=== PATIENT | male | born 1965 | race Caucasian/White ===

== ENCOUNTER 2018-06-01 10:32 | Day surgery (SDC) | payer BC ==
[2018-05-31 10:24] VITALS: BMI 29.1
[~2018-06-01 10:32] MED LIST: LACTATED RINGERS 1,000 ML IV SCH; LIDOCAINE 1% 20 ML VIAL (10MG/ML) FOR IV START INTRADERMA PRN
[2018-06-01 10:51] VITALS: RESP 16; TEMP 96.4
[2018-06-01] MEDS ORDERED: PROPOFOL 10 MG/ML 20 ML VIAL IV ONE (11:15)
--- NOTE | 2018-06-01 12:03 | P.PCN ---
Date of Procedure: 06/01/18 Procedure(s) Performed: Procedure: Colonoscopy and polypectomy. Preoperative diagnosis: Screening for neoplasia. Postoperative diagnosis: Rectal polyp snared but no large polyps or cancer. Preparation: HalfLytely prep. Sedation: Was provided by anesthesia. Brief clinical history: The patient is a 53-year-old male who is scheduled for this evaluation for screening for neoplasia age being his risk factor. There is history of "stomach" issues in his brother and sister but no family history of colon cancer. The patient has no abdominal complaints, bleeding or anemia. This would be his first colonoscopy. Procedure: With the patient on his left lateral decubitus position and after informed consent and adequate sedation, the perianal area was inspected and it did not show any fissures or fistulas. There were no masses felt on digital rectal examination. The Olympus CFH 190 L video colonoscope was then inserted in the rectum in the usual fashion and advanced to the cecum. The mucosa appeared healthy. There was a small rectal polyp within 1-2 cm from the anorectal junction which was snared and retrieved by suction, but there were no large polyps or cancer. No obvious diverticular disease or other pathology. I retroflexed the endoscope in the rectum before the endoscope was withdrawn. The patient tolerated the procedure well. Plan: The patient was reassured. Will await pathology results. I anticipate repeating this exam in 5 years.
[2018-06-01 12:31] VITALS: BP 121/76; PULSE 53
== END 2018-06-01 12:21 | disposition home or self-care (01) ==
LOC: ORWHC2ENDO 10:32
DX: Z12.11 Encounter for screening for malignant neoplasm of colon (principal); D12.8 Benign neoplasm of rectum; Z87.891 Personal history of nicotine dependence; Z79.82 Long term (current) use of aspirin; Z79.899 Other long term (current) drug therapy; F39 Unspecified mood [affective] disorder; I10 Essential (primary) hypertension; E78.5 Hyperlipidemia, unspecified
CPT/HCPCS: 88305; 45385; J2704

== ENCOUNTER 2019-02-23 14:49 | Inpatient (IN) | payer BC ==
[2019-02-23] MEDS ORDERED: NITROGLYCERIN SL TABS 0.4 MG TAB SUBLINGUAL STA (14:56)
[2019-02-23] MEDS ORDERED: ATORVASTATIN 80 MG TAB PO STA (14:56)
[2019-02-23] MEDS ORDERED: HEPARIN SODIUM,PORCINE 5,000 UNIT/ML 1 ML VIAL IV ONE (14:57)
[2019-02-23] MEDS ORDERED: IV FLUID CONTINUATION 950 ML IV ONE (15:05)
[2019-02-23] MEDS ORDERED: fentaNYL (PF) 50 MCG/ML 2 ML AMP ONE (15:08)
[2019-02-23] MEDS ORDERED: LIDOCAINE 1% INJ 10MG/ML (20 ML MDV) ONE (15:08)
[2019-02-23] MEDS ORDERED: VERAPAMIL 2.5 MG/ML 2 ML AMP ONE (15:08)
--- NOTE | 2019-02-23 15:17 | ED ---
General Adult HPI - General Chief complaint: Chest Pain Stated complaint: Stemi Time Seen by Provider: 02/23/19 14:55 Source: patient, RN notes reviewed, old records reviewed Mode of arrival: EMS Limitations: no limitations - History of Present Illness Initial comments: This a 54-year-old male who presents emergency Department with a past medical history significant for strong family history of heart disease also he has high blood pressure and high cholesterol. Patient states today he was cooking when all of a sudden he started having severe anterior chest pressure that radiated to his back per patient denies any difficulty breathing shortness of breath per patient denied any diaphoretic episodes. Patient states he has never had any pain like this was quite significant. Patient states the pain continues. EMS was unable to give him any nitroglycerin and did however give him an aspirin. Patient denies any recent workup for any heart problems. - Related Data Home Medications Medication Instructions Recorded Confirmed ALPRAZolam [Xanax] 0.5 mg PO BID PRN 05/31/18 06/01/18 Aspirin [Adult Low Dose Aspirin EC] 81 mg PO DAILY 05/31/18 06/01/18 Atenolol [Tenormin] 50 mg PO DAILY 05/31/18 06/01/18 Multivitamins, Thera [Multivitamin 1 tab PO DAILY 05/31/18 06/01/18 (formulary)] Ondansetron [Zofran] 4 mg PO Q8HR PRN 05/31/18 06/01/18 amLODIPine BESYLATE/BENAZEPRIL 1 cap PO DAILY 05/31/18 06/01/18 [Lotrel 10-20 MG] Allergies Allergy/AdvReac Type Severity Reaction Status Date / Time No Known Allergies Allergy Verified 02/23/19 14:58 Review of Systems ROS Statement: Those systems with pertinent positive or pertinent negative responses have been documented in the HPI. ROS Other: All systems not noted in ROS Statement are negative. 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 General Exam - General Exam Comments Initial Comments: GENERAL: Patient is well-developed and well-nourished. Patient is nontoxic and well- hydrated and is in mild distress. ENT: Neck is soft and supple. No significant lymphadenopathy is noted. Oropharynx is clear. Moist mucous membranes. Neck has full range of motion without eliciting any pain. EYES: The sclera were anicteric and conjunctiva were pink and moist. Extraocular movements were intact and pupils were equal round and reactive to light. Eyelids were unremarkable. PULMONARY: Unlabored respirations. Good breath sounds bilaterally. No audible rales rhonchi or wheezing was noted. CARDIOVASCULAR: There is a regular rate and rhythm without any murmurs gallops or rubs. ABDOMEN: Soft and nontender with normal bowel sounds. SKIN: Skin is clear with no lesions or rashes and otherwise unremarkable. NEUROLOGIC: Patient is alert and oriented x3. Cranial nerves II through XII are grossly intact. Motor and sensory are also intact. Normal speech, volume and content. Symmetrical smile. MUSCULOSKELETAL: Normal extremities with adequate strength and full range of motion. LYMPHATICS: No significant lymphadenopathy is noted PSYCHIATRIC: Normal psychiatric evaluation. Limitations: no limitations Course Vital Signs 02/23/19 14:55 Temperature 98.1 F Pulse Rate 60 Respiratory 16 Rate Blood Pressure 142/80 O2 Sat by Pulse 99 Oximetry Medical Decision Making - Medical Decision Making I saw the EKG that EMS sent and I merely called a STEMI overhead. I spoke with Dr. Burgos he agreed to take the patient as soon as the Sub Master was available which she estimated would be approximately 5 minutes. New. Patient received a heparin bolus in the emergency department nitroglycerin as well and Lipitor. I spoke with Dr. Corbett doctor she agreed to admit the patient admitted the patient wrote admitting orders. Critical Care Time Critical Care Time: Yes Total Critical Care Time: 35 Disposition Clinical Impression: ST elevation myocardial infarction (STEMI) Disposition: ADMITTED IP TO THIS HOSP Referrals: Navid Sunshine DO [Primary Care Provider] - 1-2 days Time of Disposition: 15:18
[2019-02-23] MEDS ORDERED: fentaNYL (PF) 50 MCG/ML 2 ML AMP IV ONE (15:19)
[2019-02-23] MEDS ORDERED: LIDOCAINE 1% INJ 10MG/ML (20 ML MDV) SQ ONE (15:20)
[2019-02-23 15:21] LABS: Basophils # (A) 0.1 k/uL (0-0.2); Basophils % (A) 1 %; Eosinophils # (A) 0.3 k/uL (0-0.7); Eosinophils % (A) 3 %; HCT 42.6 % (39.0-53.0); HGB 14.9 gm/dL (13.0-17.5); Lymphocytes # (A) 2.7 k/uL (1.0-4.8); Lymphocytes % (A) 28 %; MCH 31.5 pg (25.0-35.0); MCV 90.1 fL (80.0-100.0); Mean Platelet Volume 8.8; Monocytes # (A) 0.6 k/uL (0-1.0); Monocytes % (A) 7 %; Neutrophils # (A) 5.5 k/uL (1.3-7.7); Neutrophils % (A) 58 %; Platelet Count 289 k/uL (150-450); RBC 4.73 m/uL (4.30-5.90); RDW 12.4 % (11.5-15.5); WBC 9.4 k/uL (3.8-10.6)
[2019-02-23] MEDS ORDERED: VERAPAMIL SYRINGE (5 MG/10 ML) INTRAARTER ONE (15:22)
[2019-02-23] MEDS ORDERED: BIVALIRUDIN BOLUS 250 MG/50 ML IV ONE (15:27)
[2019-02-23] MEDS ORDERED: BIVALIRUDIN 250 MG in SODIUM CHLORIDE 0.9% 50 ML IV ONE (15:27)
[2019-02-23 15:28] LABS: ALT 17 U/L (4-49); AST 24 U/L (17-59); African American GFR (CKD) >90 (>60 ml/min/1.73 sqM); Albumin 4.5 g/dL (3.5-5.0); Alkaline Phosphatase 58 U/L (38-126); Anion Gap 10 mmol/L; Blood Urea Nitrogen 12 mg/dL (9-20); Calcium 9.6 mg/dL (8.4-10.2); Carbon Dioxide 27 mmol/L (22-30); Chloride 103 mmol/L (98-107); Glucose 125 mg/dL (74-99); Magnesium 1.8 mg/dL (1.6-2.3); Non-African American GFR(CKD) >90 (>60 ml/min/1.73 sqM); Potassium 3.9 mmol/L (3.5-5.1); Sodium 140 mmol/L (137-145); Total Bilirubin 0.4 mg/dL (0.2-1.3); Total Protein 7.4 g/dL (6.3-8.2)
[2019-02-23] MEDS ORDERED: TICAGRELOR 90 MG TAB ONE (15:29)
[2019-02-23] MEDS ORDERED: TICAGRELOR 90 MG TAB PO ONE (15:30)
[2019-02-23 15:31] LABS: INR 0.9 (<1.2); Partial Thromboplastin Time 36.8 sec (22.0-30.0); Prothrombin Time 9.5 sec (9.0-12.0)
[2019-02-23] MEDS ORDERED: SODIUM CHLORIDE 0.9% 500 ML 500 ML IV ONE (15:34)
[2019-02-23] MEDS ORDERED: IOPAMIDOL-370 125ML BTL INJ ONE (15:40)
[2019-02-23] MEDS ORDERED: NITROGLYCERIN 1000MCG/10ML SYRINGE INTRACORON ONE (15:44)
[2019-02-23] MEDS ORDERED: IOPAMIDOL-370 100ML BTL INJ ONE (16:03)
[2019-02-23] MEDS ORDERED: ZOLPIDEM 5 MG TAB PO PRN (16:12)
[2019-02-23] MEDS ORDERED: ATROPINE SULFATE 0.1 MG/ML 10ML SYRINGE IV PRN (16:12)
[2019-02-23] MEDS ORDERED: NITROGLYCERIN SL TABS 0.4 MG TAB SUBLINGUAL PRN (16:12)
[2019-02-23] MEDS ORDERED: RX INFO: IV CONTRAST WAS GIVEN 1 EACH MISC MISCELLANE PRN (16:12)
[2019-02-23] MEDS ORDERED: MAG HYDROX/AL HYDROX/SIMETH 30 ML CUP PO PRN (16:12)
[2019-02-23 16:19] LABS: Glucose,Whole Blood 97 mg/dL (75-99)
[2019-02-23] MEDS: SODIUM CHLORIDE 0.9% 1,000 ML IV SCH ×2 (18:06→22:08)
[2019-02-23] MEDS: METOPROLOL TARTRATE 25 MG TAB PO SCH (18:07)
--- NOTE | 2019-02-23 18:09 | P.HPIM ---
History of Present Illness this is a pleasant 54 yo M with past medical history of hypertension, osteoarthritis , who presents with one day of central and upper left chest pain of sever nature , non specific , non radiating associated with lightheadedness and some dyspnea , happened while he was sitting with for a meal . in the emergency room pt found to have inferior myocardial infarction with elevated ST segment in inferior lead with reciprocal changes in the lateral leads ,labs including CBC ,BMP Liver enz and INR were unremarkable, his troponin was negative initially with less than 0.012, pt underwent emergent cardiac cath with coronary angiogram and possible stent placement ( final report is still pending) pt was started on aspirin , brillinta, lipitor , lopressor, lisinopril and normal saline at 75 ml/hr pt denies smoking , occasional alcohol , no illicit drugs Review of Systems CONSTITUTIONAL: No fever, no malaise, no fatigue. HEENT: No recent visual problems or hearing problems. Denied any sore throat. CARDIOVASCULAR: No orthopnea, PND, no palpitations, no syncope. PULMONARY: No shortness of breath, no cough, no hemoptysis. GASTROINTESTINAL: No diarrhea, no nausea, no vomiting, no abdominal pain. Normoactive bowel sounds. NEUROLOGICAL: No headaches, no weakness, no numbness. HEMATOLOGICAL: Denies any bleeding or petechiae. GENITOURINARY: Denies any burning micturition, frequency, or urgency. MUSCULOSKELETAL/RHEUMATOLOGICAL: Denies any joint pain, swelling, or any muscle pain. ENDOCRINE: Denies any polyuria or polydipsia. Past Medical History Past Medical History: Chest Pain / Angina, Hypertension, Osteoarthritis (OA) Additional Past Medical History / Comment(s): 2 stents to RCA 02/23/19 History of Any Multi-Drug Resistant Organisms: None Reported Past Surgical History: Heart Catheterization, Orthopedic Surgery Additional Past Surgical History / Comment(s): RIGHT SHOULDER SURGERY, LEFT KNEE ARTHROSCOPY, TUMOR ABOVE LEFT EYE (INFANT), MESENTARY? (4 YRS OLD)., WISDOM TEETH Past Anesthesia/Blood Transfusion Reactions: No Reported Reaction Past Psychological History: Anxiety, Depression Smoking Status: Former smoker Past Alcohol Use History: None Reported Past Drug Use History: None Reported - Past Family History Mother Family Medical History: No Reported History Sister(s) Additional Family Medical History / Comment(s): BOWEL SURGERY - UNSURE CAUSE. Medications and Allergies Home Medications Medication Instructions Recorded Confirmed Type Aspirin [Adult Low Dose Aspirin EC] 81 mg PO DAILY 05/31/18 02/23/19 History Atenolol [Tenormin] 50 mg PO DAILY 05/31/18 02/23/19 History Multivitamins, Thera [Multivitamin 1 tab PO DAILY 05/31/18 02/23/19 History (formulary)] amLODIPine BESYLATE/BENAZEPRIL 1 cap PO DAILY 05/31/18 02/23/19 History [Lotrel 10-20 MG] HYDROcodone/APAP 10-325MG [Anchor 1 tab PO Q8H PRN 02/23/19 02/23/19 History 10-325] [place]-3 Fatty Acids [[place]-3] 1,000 mg PO DAILY 02/23/19 02/23/19 History Pravastatin Sodium [Pravachol] 20 mg PO HS 02/23/19 02/23/19 History Vitamin B Complex 1 cap PO DAILY 02/23/19 02/23/19 History methylPREDNISolone Dose Pack See Taper PO DIRECTED 02/23/19 02/23/19 History [Medrol Dose Pack] Allergies Allergy/AdvReac Type Severity Reaction Status Date / Time rosuvastatin [From Crestor] AdvReac muscle pain Verified 02/23/19 17:22 Physical Exam Vitals: Vital Signs Temp Pulse Resp BP Pulse Ox 02/23/19 17:15 80 18 162/98 98 02/23/19 17:00 79 14 150/80 98 02/23/19 16:45 71 15 163/85 99 02/23/19 16:30 98.1 F 78 13 171/92 99 02/23/19 14:59 59 L 18 132/74 99 02/23/19 14:55 98.1 F 60 16 142/80 99 Intake and Output 02/23/19 02/23/19 02/23/19 06:59 14:59 22:59 Intake Total 507.2 Output Total 1300 Balance -792.8 Intake: IV 507.2 Sodium Chloride 0.9% 1, 75 000 ml @ 75 mls/hr IV . [id number] [facility] Rx#:[id number] Output: Urine 1300 Other: Voiding Method Urinal Weight 104.326 kg 104.326 kg GENERAL: The patient is alert and oriented x3, not in any acute distress. Well developed, well nourished. HEENT: Pupils are round and equally reacting to light. EOMI. No scleral icterus. No conjunctival pallor. Normocephalic, atraumatic. No pharyngeal erythema. No thyromegaly. CARDIOVASCULAR: S1 and S2 present. No murmurs, rubs, or gallops. PULMONARY: Chest is clear to auscultation, no wheezing or crackles. ABDOMEN: Soft, nontender, nondistended, normoactive bowel sounds. No palpable organomegaly. MUSCULOSKELETAL: No joint swelling or deformity. EXTREMITIES: No cyanosis, clubbing, or pedal edema. NEUROLOGICAL: Gross neurological examination did not reveal any focal deficits. SKIN: No rashes. Results CBC & Chem 7: 02/23/19 14:55 02/23/19 14:55 Labs: Abnormal Lab Results - Last 24 Hours (Table) 02/23/19 02/23/19 Range/Units 14:55 14:55 APTT 36.8 H (22.0-30.0) sec Glucose 125 H (74-99) mg/dL Thrombosis Risk Factor Assmnt - Choose All That Apply Any of the Below Risk Factors Present?: Yes Each Factor Represents 1 point: Acute NH, Age 41-60 years Thrombosis Risk Factor Assessment Total Risk Factor Score: 2 Thrombosis Risk Factor Assessment Level: Low Risk Assessment and Plan Assessment: acute inferior ST elevation NH, status post emergent coronary angiography hypertension primary osteoarthritis Plan: this is a pleasant 54 yo M who presents with STEMI, cardiology team did angiogram for the pt , we will follow their recommendation , c/w aspirin , brillinta, lipitor , lopressor, lisinopril, continue with gentle hydration , Labs and medication were reviewed.. Continue same treatment. Continue with symptomatic treatment. Resume home medication. Monitor lytes and vitals. DVT and GI prophylaxis. Further recommendations of the clinical course of the patient Prognosis is guarded
[2019-02-23] MEDS: TICAGRELOR 90 MG TAB PO SCH (22:07)
[2019-02-23] MEDS: ATORVASTATIN 80 MG TAB PO SCH (22:07)
--- NOTE | 2019-02-23 22:23 | CONS ---
CONSULTATION Mr. Brady is a 54-year-old male with no prior documented history of coronary artery disease and history of hypertension and premature history of coronary artery disease in the family who presented with symptoms of chest discomfort that occurred suddenly associated with dizziness. Came into the emergency room, was found to have ST elevation inferiorly and T-wave inversion in lead aVL. The patient has no prior history of myocardial infarction or similar symptoms. He has no dyspnea on exertion. No palpitation. No syncope. No PND. No orthopnea. His coronary risk factors are remarkable for history of hypertension. He is a nonsmoker, nondiabetic. There is a family history of premature coronary disease in his father. REVIEW OF SYSTEMS: Respiratory system: No document history of asthma, emphysema or bronchitis. GI system: No recent GI bleeding. No peptic ulcer disease. system: No dysuria or hematuria Nervous system: No stroke or seizure. PHYSICAL EXAMINATION: 54-year-old male, alert, oriented, no apparent distress. Evaluated in the cardiac catheterization laboratory. Heart rate in the 50s. HEAD: Normocephalic. EYES: Sclerae anicteric. NECK: Good upstroke. No bruit. No jugular venous distention. LUNGS: Clear to auscultation. HEART: Regular rate and rhythm. S1, S2. No S3. No rub or gallop. ABDOMEN: Soft, nontender. Positive bowel sounds. No organomegaly. EXTREMITIES: No edema. Intact pulses. EKG was sinus mechanism with ST-segment elevation in leads 2, 3, AVF and T-wave inversion in lead aVL consistent with an acute inferior myocardial infarction. IMPRESSION: 1. Acute inferior myocardial infarction. 2. Hypertension. 3. Family history of premature coronary disease. RECOMMENDATION: In view of finding anatomy, I recommend proceeding with coronary angiography to assess his status and guide his treatment. The rationale behind the procedures risks and complication were discussed with the patient who is in full understanding and agreement. Thank you for this consult. We will follow with you. MMODL / IJN: [id number] /
--- NOTE | 2019-02-23 22:53 | CC ---
CARDIAC CATHETERIZATION REPORT Mr. Brady is a 54-year-old male with no prior history of coronary artery disease and with a family history of premature coronary disease, history of hypertension, hyperlipidemia, who presented with evidence of an acute inferior myocardial infarction. In view of that, recommendation made regarding cardiac catheterization. The procedure as well as risks and complications were discussed with the patient who is in full understanding and agreement. DESCRIPTION OF PROCEDURE: Patient was brought to [facility] in a fasting semisedated state. After receiving fentanyl and Benadryl and achieving moderate conscious sedated state, using Xylocaine anesthesia and Seldinger technique, a 6-Marshallese sheath was introduced in the right radial artery. Selective right and left coronary angiography performed using 6- Marshallese FR4 guiding catheter. After performing angioplasty and stenting of the right coronary artery, a 5-Marshallese 3.5 left Hailey catheter was introduced into the system. Images of the left coronary system were obtained. Following that, a 5-Marshallese tight pigtail catheter was introduced in the left ventricle and a 30-degree GARCIA view of the left ventricle was obtained. Following that, catheter and sheath were removed. Hemostasis was obtained with deployment of a TR band. There was no immediate complication. Patient is returned to his room in stable condition. FINDINGS: Left main: This is a large-sized vessel trifurcating into left circumflex, left anterior descending artery, left main coronary artery; has no evidence of high- grade stenosis. Left anterior descending artery: This is a large-sized vessel tapers down distal third, gives rise to a large diagonal branch in the mid segment. The left anterior descending coronary artery and artery as well as branches have no evidence of obstructive coronary artery disease. Ramus intermedius: This is a large vessel reaching to the apical lateral wall that has no evidence of high-grade stenosis. Left circumflex: This is a small nondominant vessel, gives rise to a small obtuse marginal branch. The left circumflex has no evidence of obstructive disease. Right coronary artery : This vessel is totally occluded in the mid segment with no significant antegrade flow. LEFT VENTRICULOGRAM: Performed in 30-degree GARCIA view and revealed mild inferior wall hypokinesis. There was no significant mitral regurgitation. Ejection fraction is estimated at 50%. HEMODYNAMICS: There was no gradient across the aortic valve. The left ventricular end- diastolic pressure was 28 mmHg. CONCLUSION: 1. Acutely occluded mid right coronary artery 2 normal left coronary system. 2. mildly impaired left ventricular systolic function. RECOMMENDATION: In view of the findings and anatomy I have recommend proceeding with angioplasty and stenting of the right coronary artery. The procedure as well as risks and complication were discussed with the patient who is in full understanding and agreement. YANIV / JOB: [id number] / MTDD
--- NOTE | 2019-02-23 23:02 | CC ---
CARDIAC CATHETERIZATION REPORT Mr. Brady is a 54-year-old male known history of hypertension, hyperlipidemia, family history of premature coronary disease who presented with an acute myocardial infarction, underwent cardiac catheterization, was found to have an acutely occluded right coronary artery. In view of that, recommendation was made regarding angioplasty and stenting. The procedure as well as risks and complication were discussed with the patient who is in full understanding and agreement. DESCRIPTION OF PROCEDURE: Using the 6-Indonesian FR4 guiding catheter, a 0.014 balanced medium weight J-wire was advanced across the lesion positioned distally. Then a 2.5 x 12 mm Trek balloon was advanced and one inflation at 10 atmospheres was done. Following that, the balloon was removed. Following that, the balloon was removed and a 3.5 x 18 mm Xience Irma stent was advanced, deployed and postdilated at 18 atmospheres. Following that, the balloon was removed and proximal to that stent a 3.5 x 12 mm Xience Irma stent was deployed, it was dilated at 18 atmospheres. After the last inflation, after appropriate wait the balloon and the guidewire were withdrawn back in the guiding catheter. Images were obtained repeated. Those images reveal stable successful stenting. At that point, the guiding catheter, the balloon and the guidewire were removed. Images of the left coronary system and left ventriculogram were performed. Following that, catheter and sheath were removed. Hemostasis was obtained with deployment of a TR band. There was no immediate complication. Patient is returned to his room in stable condition. Of note, the patient had no chest discomfort at the end procedure with resolution of his ST-segment elevation. He received Angiomax per protocol as well as oral loading dose of Brilinta. Door to balloon time 35 minutes. RESULTS: Successful stenting of the mid right coronary artery with reduction of stenosis from 100% to 0% with mild intimal disease distally. RECOMMENDATION: Patient will be continued on aspirin, Brilinta, beta blockers, PAULO inhibitor, statin. The importance of dual antiplatelet treatment will be discussed with the patient his family who are in full understanding and agreement. Duration of procedure 38 minutes. MMBELAL / RADHAN: [id number] /
--- NOTE | 2019-02-23 23:08 | CC ---
CARDIAC CATHETERIZATION REPORT DATE OF SERVICE: 02/23/2019 Dr. Sunshine. RE: Preston Brady Dear Dr. Sunshine: I had the pleasure of performing cardiac angioplasty, angiography, coronary angioplasty and stenting on Mr. Brady at [facility] on february 23, and a full copy of procedure note before doing brief he was found to have a totally occluded acutely occluded mid right coronary artery underwent successful stenting of that vessel. procedure was stabilized statin thank you again. Please feel free to call with any questions, issues or concerns. Sincerely, MMODL / IJN: [id number] /
[2019-02-24 03:02] LABS: Basophils % (A) 0 %; Eosinophils # (A) 0.1 k/uL (0-0.7); Eosinophils % (A) 1 %; HCT 41.1 % (39.0-53.0); HGB 13.5 gm/dL (13.0-17.5); Lymphocytes # (A) 1.8 k/uL (1.0-4.8); Lymphocytes % (A) 16 %; MCH 30.1 pg (25.0-35.0); MCHC 32.9 g/dL (31.0-37.0); MCV 91.6 fL (80.0-100.0); Mean Platelet Volume 8.8; Monocytes # (A) 0.8 k/uL (0-1.0); Monocytes % (A) 7 %; Neutrophils # (A) 8.3 k/uL (1.3-7.7); Neutrophils % (A) 74 %; Platelet Count 233 k/uL (150-450); RBC 4.48 m/uL (4.30-5.90); RDW 12.4 % (11.5-15.5); WBC 11.1 k/uL (3.8-10.6)
[2019-02-24 03:24] LABS: African American GFR (CKD) >90 (>60 ml/min/1.73 sqM); Anion Gap 6 mmol/L; Blood Urea Nitrogen 12 mg/dL (9-20); Calcium 9.1 mg/dL (8.4-10.2); Carbon Dioxide 27 mmol/L (22-30); Chloride 106 mmol/L (98-107); Cholesterol 178 mg/dL (<200); Glucose 103 mg/dL (74-99); HDL Cholesterol 37 mg/dL (40-60); LDL Cholesterol,Calculated 97 mg/dL (0-99); Non-African American GFR(CKD) >90 (>60 ml/min/1.73 sqM); Potassium 3.8 mmol/L (3.5-5.1); Sodium 139 mmol/L (137-145); Triglycerides 219 mg/dL (<150)
[2019-02-24] MEDS ORDERED: Potassium Replacement Protocol 1 EACH MISC MISCELLANE PRN (07:00)
[2019-02-24] MEDS: LISINOPRIL 5 MG TAB PO SCH (08:40)
[2019-02-24] MEDS: ASPIRIN 81 MG PO SCH (08:40)
[2019-02-24] MEDS: METOPROLOL TARTRATE 25 MG TAB PO SCH ×2 (08:40→21:13)
[2019-02-24] MEDS: TICAGRELOR 90 MG TAB PO SCH ×2 (08:40→21:13)
[2019-02-24] MEDS: ENOXAPARIN 40 MG/0.4 ML SYRINGE SQ SCH (08:41)
[2019-02-24] MEDS ORDERED: POTASSIUM CHLORIDE ER 20 MEQ TAB.ER PO SCH (09:00)
--- NOTE | 2019-02-24 09:33 | P.PN ---
Subjective Progress Note Date: 02/24/19 This is a 54-year-old gentleman with history of hypertension and hypercholesterolemia and family history of strokes who was admitted yesterday with complaints of chest pain and inferior wall myocardial infarction. Patient had cardiac catheterization and stent placement of the mid RCA. Patient is feeling better. No complaints of any chest pain or shortness of breath. His maximum troponin went up to 12. His lungs are clear. Heart is regular. No JVD. No peripheral edema. Patient has history of hypercholesterolemia and has been on different medications including Lipitor, Crestor, and also Pravachol. Apparently he was having issues with a cholesterol medication with cramps in the legs and difficulty sleeping. Currently is on Lipitor 80 mg. If patient cannot tolerate statins, may be considered for injectable cholesterol medication. At this point patient is stable without any arrhythmias. We'll increase the activity and transfer to telemetry unit. Echo is already done. Lab work is re viewed Objective - Vital Signs Vital signs: Vital Signs Temp 98.1 F 02/24/19 04:00 Pulse 80 02/24/19 09:00 Resp 19 02/24/19 09:00 BP 138/78 02/24/19 09:00 Pulse Ox 98 02/24/19 09:00 Intake & Output 02/23/19 02/24/19 02/24/19 18:59 06:59 18:59 Intake Total 732.2 1625 Output Total 1300 1750 Balance -567.8 -125 Weight 104.326 kg 111.3 kg Intake: IV 732.2 525 Sodium Chloride 0.9% 1, 300 525 000 ml @ 75 mls/hr IV . [id number] [facility] Rx#:[id number] Oral 1100 Output: Urine 1300 1750 Other: Voiding Method Urinal Urinal - Exam GENERAL EXAM: Patient is alert and oriented and doesn't appear to be in any ac [place] distress HEENT: Normocephalic. Normal reaction of pupils, equal size, normal range of extraocular motion. No erythema or exudates in the throat. NECK: No masses, no nuchal rigidity. CHEST: No chest wall deformity. LUNGS: Equal air entry with no crackles or wheeze. HEART: S1 and S2 normal with no audible mumurs or gallops. Regular rhythm, femorals equal on both sides.. ABDOMEN: No hepatosplenomegaly, normal bowel sounds, no guarding or rigidity. SKIN: No rashes CENTRAL NERVOUS SYSTEM: No focal deficits. EXTREMITIES: No cyanosis, clubbing or edema. - Labs CBC & Chem 7: 02/24/19 02:44 02/24/19 02:44 Labs: Abnormal Lab Results - Last 24 Hours (Table) 02/23/19 02/23/19 02/23/19 Range/Units 14:55 14:55 20:25 WBC (3.8-10.6) k/uL Neutrophils # (1.3-7.7) k/uL APTT 36.8 H (22.0-30.0) sec Glucose 125 H (74-99) mg/dL Troponin I 8.630 H* (0.000-0.034) ng/mL Triglycerides (<150) mg/dL HDL Cholesterol (40-60) mg/dL 02/24/19 02/24/19 02/24/19 Range/Units 02:44 02:44 02:44 WBC 11.1 H (3.8-10.6) k/uL Neutrophils # 8.3 H (1.3-7.7) k/uL APTT (22.0-30.0) sec Glucose 103 H (74-99) mg/dL Troponin I 14.200 H* (0.000-0.034) ng/mL Triglycerides 219 H (<150) mg/dL HDL Cholesterol 37 L (40-60) mg/dL Assessment and Plan (1) Hypercholesterolemia Current Visit: Yes Status: Acute Code(s): E78.00 - PURE HYPERCH OLESTEROLEMIA, UNSPECIFIED SNOMED Code(s): 72000440 (2) ST elevation myocardial infarction (STEMI) Current Visit: Yes Status: Acute Code(s): I21.3 - ST ELEVATION (STEMI) MYOCARDIAL INFARCTION OF [facility] SITE SNOMED Code(s): 79394404 (3) Essential hypertension Current Visit: Yes Status: Acute Code(s): I10 - ESSENTIAL (PRIMARY) HYPERTENSION SNOMED Code(s): 85528924 Plan: Continue current medical therapy including aspirin,Brillinta Lipitor 80 mg and beta . Transfer to telemetry unit and increase activity as tolerated
--- NOTE | 2019-02-24 10:44 | P.PN ---
Subjective this is a pleasant 54 yo M with past medical history of hypertension, osteoarthritis , who presents with one day of central and upper left chest pain of sever nature , non specific , non radiating associated with lightheadedness and some dyspnea , happened while he was sitting with for a meal . in the emergency room pt found to have inferior myocardial infarction with elevated ST segment in inferior lead with reciprocal changes in the lateral leads ,labs including CBC ,BMP Liver enz and INR were unremarkable, his troponin was negative initially with less than 0.012, pt underwent emergent cardiac cath with coronary angiogram and possible stent placement ( final report is still pending) pt was started on aspirin , brillinta, lipitor , lopressor, lisinopril and normal saline at 75 ml/hr pt denies smoking , occasional alcohol , no illicit drugs 02/24/2019 Patient is a status post emergent coronary angiogram for STEMI yesterday, he underwent successful stenting of the right coronary artery. Today Patient is seen and examined in the ICU, he was sitting in the chair free of chest pain or discomfort. No dyspnea. He has low back discomfort mostly musculoskeletal in nature. Vitals stable and labs were checked. He has mild leukocytosis which could be reactive. BMP is unremarkable. He was started on aspirin and a brillinta, also patient is on metoprolol and lisinopril and Lipitor. Patient and at bedside for counseled extensively about importance of aggressive therapy and importance of follow-up and he agrees Review of systems: CONSTITUTIONAL: No fever, no malaise, no fatigue. HEENT: No recent visual problems or hearing problems. Denied any sore throat. CARDIOVASCULAR: No orthopnea, PND, no palpitations, no syncope. PULMONARY: No shortness of breath, no cough, no hemoptysis. GASTROINTESTINAL: No diarrhea, no nausea, no vomiting, no abdominal pain. Normoactive bowel sounds. NEUROLOGICAL: No headaches, no weakness, no numbness. HEMATOLOGICAL: Denies any bleeding or petechiae. GENITOURINARY: Denies any burning micturition, frequency, or urgency. MUSCULOSKELETAL/RHEUMATOLOGICAL: Denies any joint pain, swelling, or any muscle pain. ENDOCRINE: Denies any polyuria or polydipsia. Active Medications Generic Name Dose Route Start Last Admin Trade Name Freq PRN Reason Stop Dose Admin Al Hydroxide/Mg Hydroxide 30 ml 02/23/19 16:12 Maalox PO Q4HR PRN Heartburn Aspirin 81 mg 02/24/19 09:00 02/24/19 08:40 Aspirin PO 81 mg DAILY MIROSLAVA Administration Atorvastatin Calcium 80 mg 02/23/19 21:00 02/23/19 22:07 Lipitor PO 80 mg HS MIROSLAVA Administration Atropine Sulfate 0.5 mg 02/23/19 16:12 Atropine IV ONCE PRN Symptomatic Bradycardia Enoxaparin Sodium 40 mg 02/24/19 09:00 02/24/19 08:41 Lovenox SQ 40 mg DAILY MIROSLAVA Administration Lisinopril 5 mg 02/24/19 09:00 02/24/19 08:40 Zestril PO 5 mg DAILY MIROSLAVA Administration Metoprolol Tartrate 25 mg 02/23/19 21:00 02/24/19 08:40 Lopressor PO 25 mg BID MIROSLAVA Administration Miscellaneous Information 1 each 02/23/19 16:12 Rx Info: Iv Contrast Was Given MISCELLANE 02/25/19 16:12 DAILY PRN Per Protocol Miscellaneous Information 1 each 02/24/19 07:00 Potassium Per Protocol MISCELLANE DAILY PRN Per Protocol Protocol Nitroglycerin 0.4 mg 02/23/19 16:12 Nitrostat SUBLINGUAL Q5M PRN Chest Pain Ticagrelor 90 mg 02/23/19 21:00 02/24/19 08:40 Brilinta PO 90 mg BID MIROSLAVA Administration Zolpidem Tartrate 5 mg 02/23/19 16:12 Ambien PO HS PRN Insomnia Objective - Vital Signs Vital signs: Vital Signs Temp 98.1 F 02/24/19 04:00 Pulse 80 02/24/19 09:00 Resp 19 02/24/19 09:00 BP 138/78 02/24/19 09:00 Pulse Ox 98 02/24/19 09:00 Intake & Output 02/23/19 02/24/19 02/24/19 18:59 06:59 18:59 Intake Total 732.2 1625 Output Total 1300 1750 0 Balance -567.8 -125 0 Weight 104.326 kg 111.3 kg Intake: IV 732.2 525 Sodium Chloride 0.9% 1, 300 525 000 ml @ 75 mls/hr IV . [id number] [facility] Rx#:[id number] Oral 1100 Output: Urine 1300 1750 0 Other: Voiding Method Urinal Urinal # Voids 1 - Exam GENERAL: The patient is alert and oriented x3, not in any acute distress. Well developed, well nourished. HEENT: Pupils are round and equally reacting to light. EOMI. No scleral icterus. No conjunctival pallor. Normocephalic, atraumatic. No pharyngeal erythema. No thyromegaly. CARDIOVASCULAR: S1 and S2 present. No murmurs, rubs, or gallops. PULMONARY: Chest is clear to auscultation, no wheezing or crackles. ABDOMEN: Soft, nontender, nondistended, normoactive bowel sounds. No palpable organomegaly. MUSCULOSKELETAL: No joint swelling or deformity. EXTREMITIES: No cyanosis, clubbing, or pedal edema. NEUROLOGICAL: Gross neurological examination did not reveal any focal deficits. SKIN: No rashes. no petechiae. - Labs CBC & Chem 7: 02/24/19 02:44 02/24/19 02:44 Labs: Abnormal Lab Results - Last 24 Hours (Table) 02/23/19 02/23/19 02/23/19 Range/Units 14:55 14:55 20:25 WBC (3.8-10.6) k/uL Neutrophils # (1.3-7.7) k/uL APTT 36.8 H (22.0-30.0) sec Glucose 125 H (74-99) mg/dL Troponin I 8.630 H* (0.000-0.034) ng/mL Triglycerides (<150) mg/dL HDL Cholesterol (40-60) mg/dL 02/24/19 02/24/19 02/24/19 Range/Units 02:44 02:44 02:44 WBC 11.1 H (3.8-10.6) k/uL Neutrophils # 8.3 H (1.3-7.7) k/uL APTT (22.0-30.0) sec Glucose 103 H (74-99) mg/dL Troponin I 14.200 H* (0.000-0.034) ng/mL Triglycerides 219 H (<150) mg/dL HDL Cholesterol 37 L (40-60) mg/dL 02/24/19 Range/Units 09:10 WBC (3.8-10.6) k/uL Neutrophils # (1.3-7.7) k/uL APTT (22.0-30.0) sec Glucose (74-99) mg/dL Troponin I 7.860 H* (0.000-0.034) ng/mL Triglycerides (<150) mg/dL HDL Cholesterol (40-60) mg/dL Assessment and Plan Assessment: acute inferior ST elevation [place], status post emergent coronary angiography . Status post successful stenting of the right coronary artery hypertension primary osteoarthritis Plan: this is a pleasant 54 yo M who presents with STEMI, cardiology team did angiogram for the pt with a stent, we will follow their recommendation , c/w aspirin , brillinta, lipitor , lopressor, lisinopril, encourage hydration. Labs and medication were reviewed.. Continue same treatment. Continue with symptomatic treatment. Resume home medication. Monitor lytes and vitals. DVT and GI prophylaxis. Further recommendations of the clinical course of the patient DVT prophylaxis: Lovenox Prognosis is guarded
[2019-02-24 11:50] VITALS: BMI 32.3
--- NOTE | 2019-02-24 11:56 | ECHOF ---
Referral Reason:mi MEASUREMENTS -------- HEIGHT: 182.9 cm WEIGHT: 111.1 kg BP: 132/76 RVIDd: 3.5 cm (< 3.3) IVSd: 1.4 cm (0.6 - 1.1) LVIDd: 4.8 cm (3.9 - 5.3) LVPWd: 1.4 cm (0.6 - 1.1) IVSs: 1.6 cm LVIDs: 3.9 cm LVPWs: 1.3 cm LA Diam: 4.3 cm (2.7 - 3.8) LAESV Index (A-L): 35.14 ml/m Ao Diam: 3.4 cm (2.0 - 3.7) AV Cusp: 2.3 cm (1.5 - 2.6) LA Diam: 4.5 cm (2.7 - 3.8) MV EXCURSION: 19.436 mm (> 18.000) MV EF SLOPE: 128 mm/s (70 - 150) EPSS: 0.2 cm MV E Evens: 0.75 m/s MV DecT: 205 ms MV A Evens: 0.82 m/s MV E/A Ratio: 0.91 RAP: 5.00 mmHg RVSP: 19.66 mmHg FINDINGS -------- Sinus rhythm. This was a technically good study. The left ventricular size is normal. There is moderate concentric left ventricular hypertrophy. O verall left ventricular systolic function is normal with, an EF between 55 - 60 %. The diastolic fi lling pattern is normal for the age of the patient 6.94. Basal inferior LV wall motion is hypokinet ic. Mid inferior LV wall motion is hypokinetic. The right ventricle is normal in size. LA is moderately dilated 34-39 ml/m2 The right atrial size is normal. The aortic valve is trileaflet, and appears structurally normal. No aortic stenosis or regurgitation. The mitral valve is normal. Mild mitral regurgitation is present. Mild tricuspid regurgitation present. Right ventricular systolic pressure is normal at < 35 mmHg. There is no evidence of pulmonary hypertension. There is no pulmonic regurgitation present. The aortic root size is normal. There is no pericardial effusion. CONCLUSIONS -------- 1. Sinus rhythm. 2. This was a technically good study. 3. The left ventricular size is normal. 4. There is moderate concentric left ventricular hypertrophy. 5. Overall left ventricular systolic function is normal with, an EF between 55 - 60 %. 6. The diastolic filling pattern is normal for the age of the patient 6.94 7. Basal inferior LV wall motion is hypokinetic. 8. Mid inferior LV wall motion is hypokinetic. 9. LA is moderately dilated 34-39 ml/m2 10. The aortic valve is trileaflet, and appears structurally normal. No aortic stenosis or regurgitat ion. 11. Mild mitral regurgitation is present. 12. Mild tricuspid regurgitation present. 13. Right ventricular systolic pressure is normal at < 35 mmHg. 14. There is no pulmonic regurgitation present. 15. The aortic root size is normal. 16. There is no pericardial effusion. [employer]PER[employer]OR: Lynn Boyd RDCS
[2019-02-24] MEDS: ATORVASTATIN 80 MG TAB PO SCH (21:13)
[2019-02-25 05:53] LABS: African American GFR (CKD) >90 (>60 ml/min/1.73 sqM); Anion Gap 8 mmol/L; Blood Urea Nitrogen 12 mg/dL (9-20); Calcium 9.6 mg/dL (8.4-10.2); Carbon Dioxide 26 mmol/L (22-30); Chloride 105 mmol/L (98-107); Glucose 99 mg/dL (74-99); Non-African American GFR(CKD) >90 (>60 ml/min/1.73 sqM); Potassium 4.1 mmol/L (3.5-5.1); Sodium 139 mmol/L (137-145)
[2019-02-25] MEDS: LISINOPRIL 5 MG TAB PO SCH (08:39)
[2019-02-25] MEDS: ASPIRIN 81 MG PO SCH (08:39)
[2019-02-25] MEDS: ENOXAPARIN 40 MG/0.4 ML SYRINGE SQ SCH (08:39)
[2019-02-25] MEDS: TICAGRELOR 90 MG TAB PO SCH (08:39)
[2019-02-25] MEDS: METOPROLOL TARTRATE 25 MG TAB PO SCH (08:39)
[2019-02-25 08:56] VITALS: BP 121/73; PULSE 60; RESP 18; TEMP 98.4
--- NOTE | 2019-02-25 09:45 | P.PN ---
Subjective Progress Note Date: 02/25/19 This is a 54-year-old gentleman with history of hypertension and hypercholesterolemia and family history of strokes who was admitted yesterday with complaints of chest pain and inferior wall myocardial infarction. Patient had cardiac catheterization and stent placement of the mid RCA. Patient is feeling better. No complaints of any chest pain or shortness of breath. His maximum troponin went up to 12. His lungs are clear. Heart is regular. No JVD. No peripheral edema. Patient has history of hypercholesterolemia and has been on different medications including Lipitor, Crestor, and also Pravachol. Apparently he was having issues with a cholesterol medication with cramps in the legs and difficulty sleeping. Currently is on Lipitor 80 mg. If patient cannot tolerate statins, may be considered for injectable cholesterol medication. At this point patient is stable without any arrhythmias. We'll increase the activity and transfer to telemetry unit. Echo is already done. Lab work is re viewed. 02/24/2019: This 54-year-old gentleman who was admitted with acute myocardial infarction involving the inferior wall. Patient had stent placement. His troponin went up to only 12. Echo Cardigan showed minimal hypokinesis of the inferior wall. Patient is clinically stable. No complaints of chest pain, shortness of breath or arrhythmias. Lungs are clear. Heart is regular. No JVD. No peripheral edema. Patient could be discharged home on current medical therapy. Follow up with the Dr. Burgos in one week. Objective - Vital Signs Vital signs: Vital Signs Temp 98.4 F 02/25/19 08:00 Pulse 60 02/25/19 08:00 Resp 18 02/25/19 08:00 BP 121/73 02/25/19 08:00 Pulse Ox 95 02/25/19 08:00 Intake & Output 02/24/19 02/25/19 02/25/19 18:59 06:59 18:59 Intake Total 500 Output Total 1250 250 Balance -1250 250 Weight 111.3 kg Intake: Oral 500 Output: Urine 1250 250 Other: Voiding Method Urinal Urinal # Voids 1 1 - Exam GENERAL EXAM: Patient is alert and oriented and doesn't appear to be in any acute distress HEENT: Normocephalic. Normal reaction of pupils, equal size, normal range of extraocular motion. No erythema or exudates in the throat. NECK: No masses, no nuchal rigidity. CHEST: No chest wall deformity. LUNGS: Equal air entry with no crackles or wheeze. HEART: S1 and S2 normal with no audible mumurs or gallops. Regular rhythm, femorals equal on both sides.. ABDOMEN: No hepatosplenomegaly, normal bowel sounds, no guarding or rigidity. SKIN: No rashes CENTRAL NERVOUS SYSTEM: No focal deficits. EXTREMITIES: No cyanosis, clubbing or edema. - Labs CBC & Chem 7: 02/24/19 02:44 02/25/19 04:52 Labs: Abnormal Lab Results - Last 24 Hours (Table) 02/24/19 Range/Units 09:10 Troponin I 7.860 H* (0.000-0.034) ng/mL Assessment and Plan (1) Hypercholesterolemia Current Visit: Yes Status: Acute Code(s): E78.00 - PURE HYPERCHOLESTEROLEMIA, UNSPECIFIED SNOMED Code(s): 98909808 (2) ST elevation myocardial infarction (STEMI) Current Visit: Yes Status: Acute Code(s): I21.3 - ST ELEVATION (STEMI) MYOCARDIAL INFARCTION OF [facility] SITE SNOMED Code(s): 76615159 (3) Essential hypertension Current Visit: Yes Status: Acute Code(s): I10 - ESSENTIAL (PRIMARY) HYP ERTENSION SNOMED Code(s): 57629897 Plan: The patient is clinically stable. No arrhythmias. Tolerating activity .LV function is well-preserved with mild hypokinesis of inferior wall. Discharge patient home today. Follow-up with Dr. Burgos.
--- NOTE | 2019-02-25 12:02 | P.DS ---
Providers Date of admission: 02/23/19 14:58 Attending physician: Devaughn Manning MD Consults: 02/23/19 16:12 Consult Physician Routine Consulting Provider: [facility] Consult Reason/Comments: Post Interventional patient Do you want consulting provider notified?: Already Contacted Primary care physician: Navid Beaumont Hospital Course: Diagnoses: acute inferior ST elevation [place], status post emergent coronary angiography . Status post successful stenting of the right coronary artery hypertension primary osteoarthritis Hospital course: this is a pleasant 54 yo M with past medical history of hypertension, osteoarthritis , who presents with one day of central and upper left chest pain of sever nature , in the emergency room pt found to have inferior myocardial infarction with elevated ST segment in inferior lead with reciprocal changes in the lateral leads ,labs including CBC ,BMP Liver enz and INR were unremarkable, his troponin was negative initially with less than 0.012, elevated later to 7.0- 14.0 . pt underwent emergent cardiac cath with coronary angiogram awith successful stenting of the right coronary artery.He was started on aspirin and a brillinta, also patient is on metoprolol and lisinopril and Lipitor. Patient and at bedside for counseled extensively about importance of aggressive therapy and importance of follow-up and he agrees On the day of discharge patient denies chest pain, no dyspnea. No change in urine or bowel habits. No nausea vomiting. No fever. Patient was cleared for discharge back field machinist Problems and management plan were discussed with the patient and he verbalized understanding and acceptance Patient was found stable and can be discharged home however he needs follow-up as an outpatient. Patient was instructed to follow up with PCP and field machinist Dr. fernandes within one week and patient agrees. Patient and agree with the appointments made for PCP and Dr. Fernandes. Also the left confirmed to me she got all the strips, Brillinta is not covered by the insurance but she has a coupon for 1 month and he is going to follow-up with her field machinist before the end of the month to switch it to another medication by his insurance Gen: patient is a AAOx3, no distress CVS: S1-S2, RRR, no murmur Lungs: B/L CTA, no wheezing Abdomen: soft, no distention, no tenderness, positive bowel sounds Extremity: no leg edema or induration Time spent more than 35 minutes Plan - Discharge Summary Discharge Rx Participant: Yes New Discharge Prescriptions: New Aspirin 81 mg PO DAILY #30 chew Ticagrelor [Brilinta] 90 mg PO BID #60 tab Atorvastatin [Lipitor] 80 mg PO HS #30 tab Metoprolol Tartrate [Lopressor] 25 mg PO BID #60 tab Nitroglycerin Sl Tabs [Nitrostat] 0.4 mg SUBLINGUAL Q5M PRN #20 tab PRN Reason: Chest Pain Lisinopril [Zestril] 5 mg PO DAILY #30 tab Continue Multivitamins, Thera [Multivitamin (formulary)] 1 tab PO DAILY HYDROcodone/APAP 10-325MG [[place] 10-325] 1 tab PO Q8H PRN PRN Reason: Pain methylPREDNISolone Dose Pack [Medrol Dose Pack] See Taper PO DIRECTED Vitamin B Complex 1 cap PO DAILY [place]-3 Fatty Acids [[place]-3] 1,000 mg PO DAILY Discontinued amLODIPine BESYLATE/BENAZEPRIL [Lotrel 10-20 MG] 1 cap PO DAILY Aspirin [Adult Low Dose Aspirin EC] 81 mg PO DAILY Atenolol [Tenormin] 50 mg PO DAILY Pravastatin Sodium [Pravachol] 20 mg PO HS Discharge Medication List Multivitamins, Thera [Multivitamin (formulary)] 1 tab PO DAILY 05/31/18 [History] HYDROcodone/APAP 10-325MG [[place] 10-325] 1 tab PO Q8H PRN 02/23/19 [History] [place]-3 Fatty Acids [[place]-3] 1,000 mg PO DAILY 02/23/19 [History] Vitamin B Complex 1 cap PO DAILY 02/23/19 [History] methylPREDNISolone Dose Pack [Medrol Dose Pack] See Taper PO DIRECTED 02/23/19 [History] Aspirin 81 mg PO DAILY #30 chew 02/25/19 [Rx] Atorvastatin [Lipitor] 80 mg PO HS #30 tab 02/25/19 [Rx] Lisinopril [Zestril] 5 mg PO DAILY #30 tab 02/25/19 [Rx] Metoprolol Tartrate [Lopressor] 25 mg PO BID #60 tab 02/25/19 [Rx] Nitroglycerin Sl Tabs [Nitrostat] 0.4 mg SUBLINGUAL Q5M PRN #20 tab 02/25/19 [Rx] Ticagrelor [Brilinta] 90 mg PO BID #60 tab 02/25/19 [Rx] Follow up Appointment(s)/Referral(s): Singh Fernandes MD [STAFF PHYSICIAN] - 03/07/19 9:30 am Navid Sunshine DO [Primary Care Provider] - 03/08/19 9:20 am Patient Instructions/Handouts: Heart Attack (DC), Coronary Artery Disease (DC), Left Heart Catheterization (DC) Discharge Disposition: HOME SELF-CARE
== END 2019-02-25 11:20 | disposition home or self-care (01) | DRG 247 ==
LOC: EC 14:49 → 2SICU 14:58 → UNDODISIN 02-25 11:20
PROVIDERS: ADMIT Internal Medicine; ATTEND Internal Medicine
PROC: B2111ZZ Fluoroscopy of Multiple Coronary Arteries using Low Osmolar Contrast (ICD-10-PCS; 2019-02-23)
PROC: B2151ZZ Fluoroscopy of Left Heart using Low Osmolar Contrast (ICD-10-PCS; 2019-02-23)
PROC: 027035Z Dilation of Coronary Artery, One Artery with Two Drug-eluting Intraluminal Devices, Percutaneous Approach (ICD-10-PCS; principal; 2019-02-23 15:02)
PROC: 4A023N7 Measurement of Cardiac Sampling and Pressure, Left Heart, Percutaneous Approach (ICD-10-PCS; 2019-02-23 15:02)
DX: I21.19 ST elevation (STEMI) myocardial infarction involving other coronary artery of inferior wall (principal); D72.829 Elevated white blood cell count, unspecified; E78.00 Pure hypercholesterolemia, unspecified; F32.9 Major depressive disorder, single episode, unspecified; F41.9 Anxiety disorder, unspecified; I10 Essential (primary) hypertension; I25.10 Atherosclerotic heart disease of native coronary artery without angina pectoris; M19.91 Primary osteoarthritis, unspecified site; Z79.82 Long term (current) use of aspirin; Z79.899 Other long term (current) drug therapy; Z87.891 Personal history of nicotine dependence; Z59.7 Insufficient social insurance and welfare support; Z88.8 Allergy status to other drugs, medicaments and biological substances; Z82.3 Family history of stroke; Z82.49 Family history of ischemic heart disease and other diseases of the circulatory system
CPT/HCPCS: 36415; 80048; 80053; 80061; 83735; 84484; 85025; 85347; 85610; 85730; 93005; 93306; 93458; 96374; 99291; C1874

== ENCOUNTER 2021-05-23 21:00 | Emergency (ER) | payer BC ==
[2021-05-23 22:01] VITALS: RESP 20; TEMP 97.8
[2021-05-23] MEDS ORDERED: GELATIN SPONGE,ABSORB (SMALL) 1 EACH SPONGE TOPICAL STA (22:55)
[2021-05-23] MEDS ORDERED: DIPH,PERTUS(ACELL)TETVAC-LF 0.5 ML VIAL IM ONE (22:56)
--- NOTE | 2021-05-23 22:59 | ED ---
Wound/Laceration HPI - General Chief Complaint: Wound/Laceration Stated Complaint: L hand lac. Time Seen by Provider: 05/23/21 22:56 Source: patient, RN notes reviewed Mode of arrival: ambulatory Limitations: no limitations - History of Present Illness Initial Comments: Patient states he was cutting a sweet potato earlier today when he inadvertently cut the tip of his left middle finger. Patient states he started to get this to stop bleeding at home but has been unsuccessful. Patient is a daily aspirin but no other anticoagulation medications. Patient denies any significant pain. No functional impairment. No other injuries. Last tetanus is unknown. No headache, no fever or chills, no changes in vision or hearing, no sore throat or difficulty with speech, no neck pain, no chest pain or shortness of breath, no abdominal pain, no nausea or vomiting, no changes in urination or bowel movements, no numbness or tingling, no skin rashes or lesions. - Related Data Home Medications Medication Instructions Recorded Confirmed Multivitamins, Thera [Multivitamin 1 tab PO DAILY 05/31/18 03/18/21 (formulary)] HYDROcodone/APAP 10-325MG [[place] 1 tab PO Q8H PRN 02/23/19 03/18/21 10-325] [place]-3 Fatty Acids [[place]-3] 1,000 mg PO DAILY 02/23/19 03/18/21 Vitamin B Complex 1 cap PO DAILY 02/23/19 03/18/21 Atorvastatin [Lipitor] 80 mg PO HS 03/12/21 03/18/21 Glucos Sul 2Kcl/MSM/Chond/C/Mn 1 each PO DAILY 03/12/21 03/18/21 [Glucosamine Chondroitin Cap] Metoprolol Tartrate [Lopressor] 25 mg PO BID 03/12/21 03/18/21 hydroCHLOROthiazide [Hydrodiuril] 25 mg PO DAILY 03/12/21 03/18/21 lisinopriL [Zestril] 5 mg PO BID 03/12/21 03/18/21 Previous Rx's Medication Instructions Recorded Aspirin 81 mg PO DAILY #30 chew 02/25/19 Nitroglycerin Sl Tabs [Nitrostat] 0.4 mg SUBLINGUAL Q5M PRN #20 tab 02/25/19 oxyCODONE HCL [OxyIR] 5 mg PO Q6H PRN 3 Days #6 tab 03/18/21 Allergies Allergy/AdvReac Type Severity Reaction Status Date / Time rosuvastatin [From Crestor] AdvReac muscle pain Verified 05/23/21 21:57 Review of Systems ROS Statement: Those systems with pertinent positive or pertinent negative responses have been documented in the HPI. ROS Other: All systems not noted in ROS Statement are negative. Past Medical History Past Medical History: Chest Pain / Angina, Hyperlipidemia, Hypertension, Myocardial Infarction ([place]), Osteoarthritis ([place]) Additional Past Medical History / Comment(s): 2 stents to RCA 02/23/19 Last Myocardial Infarction Date:: 02/23/19 History of Any Multi-Drug Resistant Organisms: None Reported Past Surgical History: Appendectomy, Heart Catheterization, Orthopedic Surgery Additional Past Surgical History / Comment(s): RIGHT SHOULDER SURGERY, LEFT KNEE ARTHROSCOPY, TUMOR ABOVE LEFT EYE (INFANT), MESENTERY? (4 YRS OLD)., WISDOM TEETH Past Anesthesia/Blood Transfusion Reactions: No Reported Reaction Past Psychological History: Anxiety, Depression Smoking Status: Former smoker Past Alcohol Use History: Rare Past Drug Use History: None Reported - Past Family History Mother Family Medical History: No Reported History Sister(s) Additional Family Medical History / Comment(s): BOWEL SURGERY - UNSURE CAUSE. General Exam Limitations: no limitations General appearance: alert, in no apparent distress Head exam: Present: atraumatic, normocephalic, normal inspection Eye exam: Present: normal appearance, EOMI Neck exam: Present: normal inspection Respiratory exam: Absent: respiratory distress Extremities exam: Present: full ROM, normal capillary refill, other (Patient has a small, 1 cm laceration to the distal aspect of his left middle finger, flexor. No underlying damage. No evidence of tendon involvement. This is very superficial with a devitalized skin flap/avulsion. No evidence of infectious process. No evidence of foreign body). Absent: tenderness Neurological exam: Present: alert, oriented X3, CN II-XII intact Psychiatric exam: Present: normal affect, normal mood Skin exam: Present: warm, dry, normal color. Absent: rash Course Vital Signs 05/23/21 21:58 Temperature 97.8 F Pulse Rate 80 Respiratory 20 Rate Blood Pressure 156/75 O2 Sat by Pulse 98 Oximetry Medical Decision Making - Medical Decision Making PROCEDURE: Limited debridement with sterile forceps and a 15 blade scalpel. There debridement 0.5 x 0.5 cm. This was a devitalized skin flap. Gelfoam applied. Sterile dressing applied. Patient counseled on wound care. Counseled on signs and symptoms of infection. Tetanus was updated. Patient was told to return to the ER for any signs or symptoms worsen. Told to return immediately if any other problems arise. All questions answered. Treatment plan discussed. Patient in agreement Every effort has been made to ensure accuracy of this dictation. However, due to the limitations of electronic medical records and dictation devices, errors in charting still occur. Disposition Clinical Impression: Avulsion of skin of finger Narrative: Skin avulsion--left middle finger Disposition: HOME SELF-CARE Condition: Good Additional Instructions: Leave the gelatin foam in place for 48 hours. He can then change the overlying bandage. If the foam is stuck your finger leave it there. It should fall off over the next few days. Caution signs and symptoms of infection. Once the foam falls off, wash the area gently with soap and water. Keep covered with a Band-Aid. Follow-up with your regular physician as directed. Return to the ER immediately if any symptoms worsen, new symptoms arise, or any other problems develop. Is patient prescribed a controlled substance at d/c from ED?: No Referrals: Navid Sunshine DO [Primary Care Provider] - 05/28/21 Time of Disposition: 22:59
[2021-05-23 23:13] VITALS: BP 144/82; PULSE 78
== END 2021-05-23 23:13 | disposition home or self-care (01) ==
LOC: EC 21:00
DX: S61.303A Unspecified open wound of left middle finger with damage to nail, initial encounter (principal); Z87.891 Personal history of nicotine dependence; I10 Essential (primary) hypertension; I25.2 Old myocardial infarction; Z88.8 Allergy status to other drugs, medicaments and biological substances; W26.0XXA Contact with knife, initial encounter
CPT/HCPCS: 11042; 90471; 90715; 99282

== ENCOUNTER 2022-03-24 12:46 | Observation (INO) | payer BC ==
[2022-03-24] MEDS ORDERED: ASPIRIN 81 MG PO STA (13:34)
[2022-03-24 13:59] LABS: Basophils # (A) 0.1 k/uL (0-0.2); Basophils % (A) 1 %; Eosinophils # (A) 0.3 k/uL (0-0.7); Eosinophils % (A) 4 %; HCT 40.6 % (39.0-53.0); HGB 14.4 gm/dL (13.0-17.5); Lymphocytes # (A) 1.9 k/uL (1.0-4.8); Lymphocytes % (A) 27 %; MCH 31.7 pg (25.0-35.0); MCHC 35.4 g/dL (31.0-37.0); MCV 89.5 fL (80.0-100.0); Mean Platelet Volume 10.1; Monocytes # (A) 0.5 k/uL (0-1.0); Monocytes % (A) 7 %; Neutrophils # (A) 4.2 k/uL (1.3-7.7); Neutrophils % (A) 58 %; Platelet Count 223 k/uL (150-450); RBC 4.54 m/uL (4.30-5.90); RDW 12.2 % (11.5-15.5); WBC 7.2 k/uL (3.8-10.6)
--- NOTE | 2022-03-24 14:06 | XR ---
EXAMINATION TYPE: XR chest 2V DATE OF EXAM: 03/24/2022 1:52 PM COMPARISON: None TECHNIQUE: XR chest 2V Frontal and lateral views of the chest. CLINICAL INDICATION:Male, 57 years old with history of Chest Pain; FINDINGS: Lungs/Pleura: There is no evidence of pleural effusion, focal consolidation, or pneumothorax. Pulmonary vascularity: Unremarkable. Heart/mediastinum: Cardiomediastinal silhouette is unremarkable. Musculoskeletal: No acute osseous pathology. IMPRESSION: No acute cardiopulmonary disease/process.
[2022-03-24] MEDS ORDERED: NITROGLYCERIN SL TABS 0.4 MG TAB SUBLINGUAL PRN (14:11)
[2022-03-24 14:14] LABS: ALT 27 U/L (4-49); AST 26 U/L (17-59); African American GFR (CKD) >90 (>60 ml/min/1.73 sqM); Albumin 4.3 g/dL (3.5-5.0); Alkaline Phosphatase 55 U/L (38-126); Anion Gap 6 mmol/L; Blood Urea Nitrogen 16 mg/dL (9-20); Calcium 8.9 mg/dL (8.4-10.2); Carbon Dioxide 28 mmol/L (22-30); Chloride 103 mmol/L (98-107); Glucose 137 mg/dL (74-99); Magnesium 1.6 mg/dL (1.6-2.3); Non-African American GFR(CKD) >90 (>60 ml/min/1.73 sqM); Sodium 137 mmol/L (137-145); Total Bilirubin 0.4 mg/dL (0.2-1.3); Total Protein 6.8 g/dL (6.3-8.2)
[2022-03-24 14:37] LABS: INR 0.9 (<1.2); Prothrombin Time 9.7 sec (9.0-12.0)
[2022-03-24 14:58] LABS: Partial Thromboplastin Time 21.6 sec (22.0-30.0)
[2022-03-24] MEDS ORDERED: MORPHINE SULFATE 4 MG/ML SYRINGE IVP STA ×2 (15:13→16:22)
--- NOTE | 2022-03-24 15:23 | ED ---
General Adult HPI - General Chief complaint: Chest Pain Stated complaint: chest pain Time Seen by Provider: 03/24/22 13:18 Source: patient, EMS, RN notes reviewed, old records reviewed Mode of arrival: EMS Limitations: no limitations - History of Present Illness Initial comments: Patient is a 57-year-old male who presents emergency Department complaining of sudden onset chest pain. States he was lifting heavy boxes at home when he began having substernal chest pain. This occurred at approximately 11:30 AM this morning. States it as substernal with no radiation. It is severe. Is somewhat related to position and worse with movement of his upper body as well as back, however is not palpable. Denies any shortness of breath. He endorses some nausea as well as almost passing out earlier in addition to the pain. Describes the pain as a "bubble sensation" that go into his chest and then he began having the lightheadedness and near syncopal episode at home. Is not on thinners. Denies passing out. Does have a history of DE with stents. Took 2 nitro at home with out relief. Received 324 aspirin. Presents for further evaluation at this time. No history of blood clots. No lower extremity pain or edema. - Related Data Home Medications Medication Instructions Recorded Confirmed HYDROcodone/APAP 10-325MG [[place] 1 tab PO Q8H PRN 02/23/19 03/24/22 10-325] Vitamin B Complex 1 cap PO DAILY 02/23/19 03/24/22 Atorvastatin [Lipitor] 80 mg PO HS 03/12/21 03/24/22 Glucos Sul 2Kcl/MSM/Chond/C/Mn 1 cap PO DAILY 03/12/21 03/24/22 [Glucosamine Chondroitin Cap] Metoprolol Tartrate [Lopressor] 25 mg PO BID 03/12/21 03/24/22 hydroCHLOROthiazide [Hydrodiuril] 25 mg PO DAILY 03/12/21 03/24/22 lisinopriL [Zestril] 5 mg PO BID 03/12/21 03/24/22 ALPRAZolam [Xanax] 0.5 mg PO BID PRN 03/24/22 03/24/22 Ascorbic Acid [Vitamin C] 1,000 mg PO DAILY 03/24/22 03/24/22 Krill Oil 500 mg PO DAILY 03/24/22 03/24/22 Multivit-Min/FA/Lycopen/Lutein 1 tab PO DAILY 03/24/22 03/24/22 [Centrum Silver Men Tablet] Saw [place] 500 mg PO DAILY 03/24/22 03/24/22 Ubidecarenone [Coenzyme Q10] 200 mg PO DAILY 03/24/22 03/24/22 Previous Rx's Medication Instructions Recorded Aspirin 81 mg PO DAILY #30 chew 02/25/19 Nitroglycerin Sl Tabs [Nitrostat] 0.4 mg SUBLINGUAL Q5M PRN #20 tab 02/25/19 Allergies Allergy/AdvReac Type Severity Reaction Status Date / Time rosuvastatin [From Crestor] AdvReac muscle pain Verified 03/24/22 15:49 Review of Systems ROS Statement: Those systems with pertinent positive or pertinent negative responses have been documented in the HPI. Review of Systems: CONST: Denies fever EYES: Denies blurry vision ENT: Denies nasal congestion C/V: Endorses chest pain RESP: Denies shortness of breath GI: Denies abdominal pain : Denies dysuria SKIN: Denies rash. MSK: Denies joint pain. NEURO: Denies headache ROS Other: All systems not noted in ROS Statement are negative. Past Medical History Past Medical History: Chest Pain / Angina, Hyperlipidemia, Hypertension, Myocardial Infarction (DE), Osteoarthritis (OA) Additional Past Medical History / Comment(s): 2 stents to RCA 02/23/19 Last Myocardial Infarction Date:: 02/23/19 History of Any Multi-Drug Resistant Organisms: None Reported Past Surgical History: Appendectomy, Heart Catheterization With Stent, Ort hopedic Surgery Additional Past Surgical History / Comment(s): RIGHT SHOULDER SURGERY, LEFT KNEE ARTHROSCOPY, TUMOR ABOVE LEFT EYE (), MESENTERY? (4 YRS OLD)., WISDOM TE ETH Past Anesthesia/Blood Transfusion Reactions: No Reported Reaction Past Psychological History: Anxiety, Depression Smoking Status: Former smoker Past Alcohol Use History: Rare Past Drug Use History: None Reported - Past Family History Mother Family Medical History: No Reported History Sister(s) Additional Family Medical History / Comment(s): BOWEL SURGERY - UNSURE CAUSE. General Exam - General Exam Comments Initial Comments: General: In mild distress secondary to chest pain. HEAD: Normal with no signs of head trauma. EYES: PERRLA, EOMI, conjunctiva normal, no discharge. ENT: Hearing grossly intact, normal oropharynx. RESPIRATORY: Clear breath sounds bilaterally. No wheezes, rales, or rhonchi. C/V: Regular rate and rhythm. S1 and S2 auscultated, no edema, peripheral pulses 2+ and intact throughout. Patient's hands are cold to touch bilaterally. ABD: Abd is soft, nontender, nondistended EXT: Normal range of motion, no obvious deformity. Chest pain is nonreproducible over the anterior chest wall on palpation. Somewhat reproducible with movement of arms. SKIN: No rashes or lesions observed on exposed skin. NEURO: Alert and oriented 4. Neurovascularly intact throughout. Limitations: no limitations Course Vital Signs 03/24/22 03/24/22 03/24/22 12:48 14:14 14:58 Temperature 98.2 F Pulse Rate 68 66 70 Respiratory 18 18 18 Rate Blood Pressure 160/75 172/83 151/76 O2 Sat by Pulse 97 98 98 Oximetry 03/24/22 03/24/22 15:10 16:45 Temperature Pulse Rate 75 59 L Respiratory 18 18 Rate Blood Pressure 144/81 131/75 O2 Sat by Pulse 95 95 Oximetry Medical Decision Making - Medical Decision Making Based on patient's presentation and physical exam, I'm concerned for her pulmonary etiology for his current pain. It could be chest wall pain, however patient has a difficult time reproducing it, and associated with the earlier sensation of a bubble rising in his chest and then having a syncopal episode with some onset of severe pain with some mild back involvement I am concerned for possible dissection. We will obtain CT angiogram of the chest abdomen pelvis evaluate for PE as well as dissection. This is in addition to her pulmonary labs. Patient is in agreement with this plan. EKG shows no signs of acute ischemia. Chest x-ray showed no acute cardio pulmonary process. CT imaging revealed no evidence of aortic dissection or pulmonary embolism. Laboratory studies are remarkable for an undetectable troponin. Remainder the labs are unremarkable. On reevaluation after the patient. Chest pain is somewhat improved after morphine but had no response to nitroglycerin tablets. I did discuss with him his workup and I believe with his risk factors he should be admitted to the [facility] for observation. He was in agreement this plan. Chest pain at this point does seem more chest wall type, however cannot rule out cardiac etiology considering his other symptoms as well as his history. Heart scores moderate at 4. He was in agreement with the admission. We will continue to manage chest pain with Toradol and morphine at this time. Troponins will be trended. Cardiology was consulted. I spoke with the admitting physician, Dr. Chow accepted the admission. Was pt. sent in by a medical professional or institution (, [facility], FOOD AND BEVERAGE ANALYST, urgent care, hospital, or [facility]...) When possible be specific @ -No Did you speak to anyone other than the patient for history (EMS, parent, family, police, friend...)? What history was obtained from this source @ -No Did you review nursing and triage notes (agree or disagree)? Why? @ -I reviewed and agree with nursing and triage notes Were old charts reviewed (outside hosp., previous admission, EMS record, old EKG, old radiological studies, urgent care reports/EKG's, [facility] records)? Report findings @ -Yes, old EKG and chart reviewed from March 2021. Differential Diagnosis (chest pain, altered mental status, abdominal pain women, abdominal pain men, vaginal bleeding, weakness, fever, dyspnea, syncope, headache, dizziness, GI bleed, back pain, seizure, CVA, palpatations, mental health)? @ -Differential Chest Pain: Stable Angina, Unstable Angina, STEMI, NSTEMI Aortic Dissection, Pneumothorax, Musculoskeletal, Esophageal Spasm GERD, Cholecystitis, Pancreatitis, Zoster, this is not meant to be an all-inclusive list. EKG interpreted by me (3pts min.). @ -As above X-rays interpreted by me (1pt min.). @ -Chest x-ray showed no acute cardio pulmonary process. CT interpreted by me (1pt min.). @ -CT angiogram of the aorta revealed no evidence of PE, aortic dissection. U/S interpreted by me (1pt. min.). @ -None done What testing was considered but not performed or refused? (CT, X-rays, U/S, labs)? Why? @ -None What meds were considered but not given or refused? Why? @ -None Did you discuss the management of the patient with other professionals (prof essionals i.e. , [facility], FOOD AND BEVERAGE ANALYST, lab, RT, psych nurse, renal social worker, chief security officer, teacher, aoc director intelligence officer, rn case management)? Give summary @ -Yes, admitting physician Dr. Chow accepted the admission. Was smoking cessation discussed for >3mins.? @ -No Was critical care preformed (if so, how long)? @ -No Were there social determinants of health that impacted care today? How? (Homelessness, low income, unemployed, alcoholism, drug addiction, transportation, low edu. Level, literacy, decrease access to med. care, usp, rehab)? @ -No Was there de-escalation of care discussed even if they declined (Discuss DNR or withdrawal of care, Hospice)? DNR status @ -No What co-morbidities impacted this encounter? (DM, HTN, Smoking, COPD, CAD, Cancer, CVA, ARF, Chemo, Hep., AIDS, mental health diagnosis, sleep apnea, morbid obesity)? @ -CAD with multiple cardiac stents Was patient admitted / discharged? Hospital course, mention meds given and route, prescriptions, significant lab abnormalities, going to OR and other pertinent info. @ -Admitted to the hospital. See above for ED course. Undiagnosed new problem with uncertain prognosis? @ -No Drug Therapy requiring intensive monitoring for toxicity (Heparin, Nitro, Insulin, Cardizem)? @ -No Were any procedures done? @ -No Diagnosis/symptom? @ -Chest pain Acute, or Chronic, or Acute on Chronic? @ -Acute Uncomplicated (without systemic symptoms) or Complicated (systemic symptoms)? @ -Uncomplicated Side effects of treatment? @ -No Exacerbation, Progression, or Severe Exacerbation? @ -No Poses a threat to life or bodily function? How? (Chest pain, [place], DE, pneumonia, PE, COPD, DKA, ARF, appy, cholecystitis, CVA, Diverticulitis, Homicidal, Suicidal, threat to staff... and all critical care pts) @ -Yes, if untreated can result in significant morbidity and mortality. - Lab Data Result diagrams: 03/24/22 13:49 03/24/22 13:49 Lab Results 03/24/22 03/24/22 03/24/22 Range/Units 13:49 13:49 13:49 WBC 7.2 (3.8-10.6) k/uL RBC 4.54 (4.30-5.90) m/uL Hgb 14.4 (13.0-17.5) gm/dL Hct 40.6 (39.0-53.0) % MCV 89.5 (80.0-100.0) fL MCH 31.7 (25.0-35.0) pg MCHC 35.4 (31.0-37.0) g/dL RDW 12.2 (11.5-15.5) % Plt Count 223 (150-450) k/uL MPV 10.1 Neutrophils % 58 % Lymphocytes % 27 % Monocytes % 7 % Eosinophils % 4 % Basophils % 1 % Neutrophils # 4.2 (1.3-7.7) k/uL Lymphocytes # 1.9 (1.0-4.8) k/uL Monocytes # 0.5 (0-1.0) k/uL Eosinophils # 0.3 (0-0.7) k/uL Basophils # 0.1 (0-0.2) k/uL PT 9.7 (9.0-12.0) sec INR 0.9 (<1.2) APTT 21.6 L (22.0-30.0) sec Sodium 137 (137-145) mmol/L Potassium 4.0 (3.5-5.1) mmol/L Chloride 103 (98-107) mmol/L Carbon Dioxide 28 (22-30) mmol/L Anion Gap 6 mmol/L BUN 16 (9-20) mg/dL Creatinine 0.95 (0.66-1.25) mg/dL Est GFR (CKD-EPI)AfAm >90 (>60 ml/min/1.73 sqM) Est GFR (CKD-EPI)NonAf >90 (>60 ml/min/1.73 sqM) Glucose 137 H (74-99) mg/dL Calcium 8.9 (8.4-10.2) mg/dL Magnesium 1.6 (1.6-2.3) mg/dL Total Bilirubin 0.4 (0.2-1.3) mg/dL AST 26 (17-59) U/L ALT 27 (4-49) U/L Alkaline Phosphatase 55 (38-126) U/L Troponin I (0.000-0.034) ng/mL Total Protein 6.8 (6.3-8.2) g/dL Albumin 4.3 (3.5-5.0) g/dL 03/24/22 Range/Units 13:49 WBC (3.8-10.6) k/uL RBC (4.30-5.90) m/uL Hgb (13.0-17.5) gm/dL Hct (39.0-53.0) % MCV (80.0-100.0) fL MCH (25.0-35.0) pg MCHC (31.0-37.0) g/dL RDW (11.5-15.5) % Plt Count (150-450) k/uL MPV Neutrophils % % Lymphocytes % % Monocytes % % Eosinophils % % Basophils % % Neutrophils # (1.3-7.7) k/uL Lymphocytes # (1.0-4.8) k/uL Monocytes # (0-1.0) k/uL Eosinophils # (0-0.7) k/uL Basophils # (0-0.2) k/uL PT (9.0-12.0) sec INR (<1.2) APTT (22.0-30.0) sec Sodium (137-145) mmol/L Potassium (3.5-5.1) mmol/L Chloride (98-107) mmol/L Carbon Dioxide (22-30) mmol/L Anion Gap mmol/L BUN (9-20) mg/dL Creatinine (0.66-1.25) mg/dL Est GFR (CKD-EPI)AfAm (>60 ml/min/1.73 sqM) Est GFR (CKD-EPI)NonAf (>60 ml/min/1.73 sqM) Glucose (74-99) mg/dL Calcium (8.4-10.2) mg/dL Magnesium (1.6-2.3) mg/dL Total Bilirubin (0.2-1.3) mg/dL AST (17-59) U/L ALT (4-49) U/L Alkaline Phosphatase (38-126) U/L Troponin I <0.012 (0.000-0.034) ng/mL Total Protein (6.3-8.2) g/dL Albumin (3.5-5.0) g/dL - EKG Data -: EKG Interpreted by Me EKG Comments: 12-lead Electrocardiogram Interpretation Note EKG was reviewed and interpreted by myself. 12-lead ECG performed at 1252 is interpreted by me as revealing normal sinus rhythm at a rate of 66 beats per minute. [place] is normal. CA interval is 177 ms, QRS duration is 101 ms, QTc is 416 ms.. There were no acute ST or T wave abnormalities to suggest myocardial ischemia or injury. R wave progression across the precordium was satisfactory. By my interpretation this EKG is non-diagnostic for acute ischemia. When compared with EKG from March 2021, no significant change. Disposition Clinical Impression: Chest pain Disposition: ADMITTED IP TO THIS HOSP Condition: Stable Time of Disposition: 16:00
--- NOTE | 2022-03-24 15:43 | CT ---
EXAMINATION TYPE: CT angio thor/abd pel aorta CT DLP: 1891.4 mGycm, Automated exposure control for dose reduction was used. DATE OF EXAM: 03/24/2022 3:09 PM COMPARISON: Chest radiograph the same date. CLINICAL INDICATION:Male, 57 years old with history of chest pain, eval for PE/dissection; PHH, chest pain TECHNIQUE: Dissection protocol: Multiple axial CT images of the chest, abdomen, and pelvis were obtai allyn prior and to the administration of IV contrast. 3-D reformats and maximum intensity projection fo rmat were performed on a separate workstation. Contrast used:100 cc mL of Isovue 370 with IV Contrast, Oral contrast used: without Oral Contrast FINDINGS: ARTERIAL VASCULATURE: The thoracic aorta is normal in course and caliber. There is no evidence of aor tic dissection, aneurysm or acute aortic injury. Great arch vessels patent and normal in course and c aliber. Mild atherosclerotic changes of the abdominal aorta. No abdominal aortic aneurysm. PULMONARY ARTERIAL VASCULATURE: Normal caliber. No evidence of filling defect to suggest pulmonary em bolus. VENOUS SYSTEM: Unremarkable. Lungs/pleura: No pneumothorax, pleural effusion, focal consolidation. No suspicious pulmonary nodules or masses. Heart: Within normal limits. No pericardial effusion. Mediastinum: No gross evidence of adenopathy. Lower Neck: No significant findings. Abdomen: Liver: Unremarkable. Gallbladder and Bile ducts: Unremarkable. Pancreas: Unremarkable. Spleen: Unremarkable. Adrenal glands: Unremarkable. Kidneys and Ureters: No hydronephrosis or nephrolithiasis. The kidneys enhance symmetrically. Duplica adam right collecting system. Stomach and Bowel: Unremarkable. No evidence of bowel obstruction. Peritoneum: No evidence of pneumoperitoneum, free fluid, or adenopathy. Bladder: Understanding, limiting evaluation.. Reproductive: Unremarkable. Abdominal wall/soft tissues: Tiny fat filled bowel hernia. Musculoskeletal: The osseous structures appear intact. Mild multilevel degenerative disc disease most pronounced at L5-S1. IMPRESSION: 1. No evidence for thoracic aortic dissection or pulmonary embolism. 2. No acute abdominal/pelvic process.
[2022-03-24] MEDS ORDERED: KETOROLAC 15 MG/ML 1 ML VIAL IVP STA (16:22)
[2022-03-24] MEDS ORDERED: MORPHINE SULFATE 4 MG/ML SYRINGE IV PRN (16:27)
[2022-03-24] MEDS ORDERED: NALOXONE 0.4 MG/ML 1 ML VIAL IV PRN (16:27)
[2022-03-24] MEDS ORDERED: ALPRAZolam 0.5 MG TAB PO PRN (17:26)
[2022-03-24] MEDS ORDERED: LACTULOSE 20 GM/30 ML CUP PO PRN (20:25)
[2022-03-24] MEDS ORDERED: CALCIUM CARBONATE 500 MG CHEWABLE PO PRN (20:25)
[2022-03-24] MEDS ORDERED: ONDANSETRON 4 MG/2 ML VIAL IVP PRN (20:25)
[2022-03-24] MEDS ORDERED: ACETAMINOPHEN TAB 325 MG TAB PO PRN (20:25)
[2022-03-24] MEDS ORDERED: TEMAZEPAM 15 MG CAP PO PRN (20:25)
[2022-03-24] MEDS ORDERED: HYDROcodone/APAP 10-325MG 1 EACH TAB PO PRN (20:25)
[2022-03-24] MEDS: METOPROLOL TARTRATE 25 MG TAB PO SCH (20:55)
[2022-03-24] MEDS: lisinopriL 5 MG TAB PO SCH (20:55)
[2022-03-24] MEDS ORDERED: ATORVASTATIN 80 MG TAB PO SCH (21:00)
[2022-03-24] MEDS: KETOROLAC 15 MG/ML 1 ML VIAL IVP PRN (22:24)
[2022-03-25] MEDS: HEPARIN SODIUM,PORCINE/PF 5,000 UNIT/0.5 ML SYRINGE SQ SCH ×2 (00:29→07:33)
[2022-03-25] MEDS ORDERED: hydroCHLOROthiazide 25 MG TAB PO SCH (09:00)
[2022-03-25] MEDS ORDERED: NON FORMULARY DRUG (Vitamin B Complex [Vitamin B Complex] 1 EACH Capsule) PO SCH (09:00)
[2022-03-25] MEDS ORDERED: NON FORMULARY DRUG (Ubidecarenone [Coenzyme Q10] 200 MG Capsule) PO SCH (09:00)
[2022-03-25] MEDS ORDERED: ASPIRIN 81 MG PO SCH (09:00)
[2022-03-25] MEDS ORDERED: ASCORBIC ACID 500 MG TAB PO SCH (09:00)
--- NOTE | 2022-03-25 09:43 | P.CRDCN ---
History of Present Illness Consult date: 03/25/22 Consult reason: chest pain History of present illness: History of present illness: This is a 57-year-old male patient with history of inferior myocardial infarction in 2019 status post angioplasty and stenting of a totally occluded mid right coronary artery, hypertension, history of premature family coronary artery disease . He follows with Dr. Burgos and was last seen in the office in August 2021. We have been asked to see the patient today for chest pain evaluation. Patient gives history of having pain that started yesterday while he was in the basement lifting boxes. 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 He ended up going upstairs and called his and he was brought into the emergency center for further evaluation. Patient's pain in the chest increases when he moves. He is a nonsmoker. EKG sinus rhythm with no acute ST changes CBC unremarkable. Troponin negative 3. Blood sugar 137 otherwise CMP within normal limits. Lexiscan Cardiolite stress test 04/10/2021 no evidence of stress-induced ischemia. Chest x-ray shows no acute process Cardiac catheterization and PCI with stent to the mid RCA, stent in the proximal RCA 02/23/2019 Echocardiogram 02/1808/19/2018 EF 55%, mild MR, mild TR Home cardiac medications aspirin 81 mg daily, atorvastatin 80 mg at bedtime, hydrochlorothiazide 25 mg daily, lisinopril 5 mg twice daily, Lopressor 25 mg twice daily, Nitrostat as needed Review Of Systems: At the time of my evaluation: Constitutional: No fever, no chills. No weakness, fatigue or lethargy. EENT: No headache. No dizziness. Lungs: No shortness of breath, cough, no sputum production. No wheezing. Cardiovascular:Reported chest wall/chest pain, no lower extremity edema. No palpitations. No paroxysmal nocturnal dyspnea. No orthopnea. No lightheadedness or dizziness. No syncopal episodes. Abdominal: No abdominal pain. No nausea, vomiting. No diarrhea. No constipation. No bloody or tarry stools. Genitourinary: No dysuria.. No urinary retention. Musculoskeletal: No myalgias. No muscle weakness, no frequent falls. No back pain. No neck pain. Integumentary: No wounds. No rash. No unusual bruising. Neurologic: No aphasia. No facial droop. No change in mentation. No head injury. No headache. Psychiatric: No depression. No anxiety. Endocrine: No abnormal blood sugars. Physical examination: Gen: This is a 57-year-old male. He is resting in the ER and appears to be comfortable and in no acute distress VS: reviewed HEENT: Head is atraumatic, normocephalic. Pupils equal, round. Sclerae is anicteric. NECK: Supple. No JVD. No lymphadenopathy. No thyromegaly. LUNGS: Clear to auscultation. No wheezes or rhonchi. No intercostal retractions. HEART: Regular rate and rhythm. No murmur. ABDOMEN: Soft. No tenderness. EXTREMITIES: No pedal edema. No calf tenderness. NEUROLOGICAL: Patient is awake, alert and oriented x3. Cranial nerves 2 through 12 are grossly intact. Assessment: Musculoskeletal chest pain History of coronary artery disease Hypertension Hyperlipidemia Plan: Continue patient's home cardiac medications Obtain 2-D echocardiogram and Doppler study to assess cardiac structure and functionIf echocardiogram is within normal limits, patient will be cleared for discharge home and follow with Dr. Burgos in the office. Thank you kindly for this consultation. Nurse practitioner note has been reviewed, I agree with documented findings and plan of care. Patient was seen and examined. Past Medical History Past Medical History: Chest Pain / Angina, Hyperlipidemia, Hypertension, Myocardial Infarction ([place]), Osteoarthritis ([place]) Additional Past Medical History / Comment(s): 2 stents to RCA 02/23/19 Last Myocardial Infarction Date:: 02/23/19 History of Any Multi-Drug Resistant Organisms: None Reported Past Surgical History: Appendectomy, Heart Catheterization With Stent, Orthopedic Surgery Additional Past Surgical History / Comment(s): RIGHT SHOULDER SURGERY, LEFT KNEE ARTHROSCOPY, TUMOR ABOVE LEFT EYE (), MESENTERY? (4 YRS OLD)., WISDOM TEETH Past Anesthesia/Blood Transfusion Reactions: No Reported Reaction Past Psychological History: Anxiety, Depression Smoking Status: Former smoker Past Alcohol Use History: Rare Past Drug Use History: None Reported - Past Family History Mother Family Medical History: No Reported History Sister(s) Additional Family Medical History / Comment(s): BOWEL SURGERY - UNSURE CAUSE. Medications and Allergies Home Medications Medication Instructions Recorded Confirmed Type HYDROcodone/APAP 10-325MG [[place] 1 tab PO Q8H PRN 02/23/19 03/24/22 History 10-325] Vitamin B Complex 1 cap PO DAILY 02/23/19 03/24/22 History Aspirin 81 mg PO DAILY #30 chew 02/25/19 03/24/22 Rx Nitroglycerin Sl Tabs [Nitrostat] 0.4 mg SUBLINGUAL Q5M PRN #20 tab 02/25/19 03/24/22 Rx Atorvastatin [Lipitor] 80 mg PO HS 03/12/21 03/24/22 History Glucos Sul 2Kcl/MSM/Chond/C/Mn 1 cap PO DAILY 03/12/21 03/24/22 History [Glucosamine Chondroitin Cap] Metoprolol Tartrate [Lopressor] 25 mg PO BID 03/12/21 03/24/22 History hydroCHLOROthiazide [Hydrodiuril] 25 mg PO DAILY 03/12/21 03/24/22 History lisinopriL [Zestril] 5 mg PO BID 03/12/21 03/24/22 History ALPRAZolam [Xanax] 0.5 mg PO BID PRN 03/24/22 03/24/22 History Ascorbic Acid [Vitamin C] 1,000 mg PO DAILY 03/24/22 03/24/22 History Krill Oil 500 mg PO DAILY 03/24/22 03/24/22 History Multivit-Min/FA/Lycopen/Lutein 1 tab PO DAILY 03/24/22 03/24/22 History [Centrum Silver Men Tablet] Saw [place] 500 mg PO DAILY 03/24/22 03/24/22 History Ubidecarenone [Coenzyme Q10] 200 mg PO DAILY 03/24/22 03/24/22 History Allergies Allergy/AdvReac Type Severity Reaction Status Date / Time rosuvastatin [From Crestor] AdvReac muscle pain Verified 03/24/22 15:49 Physical Exam Vitals: Vital Signs Temp Pulse Resp BP Pulse Ox 03/25/22 05:00 55 L 18 120/67 97 03/25/22 04:00 59 L 16 113/65 97 03/25/22 03:00 53 L 18 121/61 98 03/25/22 02:00 78 16 122/72 98 03/25/22 01:00 52 L 117/65 98 03/25/22 00:00 48 L 18 114/62 98 03/24/22 23:00 45 L 18 111/60 95 03/24/22 22:00 48 L 18 110/60 97 03/24/22 21:00 55 L 18 155/89 98 03/24/22 19:38 55 L 18 125/75 98 03/24/22 18:00 58 L 18 127/86 97 03/24/22 17:00 56 L 18 130/74 97 03/24/22 16:45 59 L 18 131/75 95 03/24/22 15:10 75 18 144/81 95 03/24/22 14:58 70 18 151/76 98 03/24/22 14:14 66 18 172/83 98 03/24/22 12:48 98.2 F 68 18 160/75 97 Results 03/24/22 13:49 03/24/22 13:49 Cardiac Enzymes 03/24/22 03/24/22 03/24/22 Range/Units 13:49 13:49 19:03 AST 26 (17-59) U/L Troponin I <0.012 <0.012 (0.000-0.034) ng/mL 03/24/22 Range/Units 23:04 AST (17-59) U/L Troponin I <0.012 (0.000-0.034) ng/mL Coagulation 03/24/22 Range/Units 13:49 PT 9.7 (9.0-12.0) sec APTT 21.6 L (22.0-30.0) sec CBC 03/24/22 Range/Units 13:49 WBC 7.2 (3.8-10.6) k/uL RBC 4.54 (4.30-5.90) m/uL Hgb 14.4 (13.0-17.5) gm/dL Hct 40.6 (39.0-53.0) % Plt Count 223 (150-450) k/uL Comprehensive Metabolic Panel 03/24/22 Range/Units 13:49 Sodium 137 (137-145) mmol/L Potassium 4.0 (3.5-5.1) mmol/L Chloride 103 (98-107) mmol/L Carbon Dioxide 28 (22-30) mmol/L BUN 16 (9-20) mg/dL Creatinine 0.95 (0.66-1.25) mg/dL Glucose 137 H (74-99) mg/dL Calcium 8.9 (8.4-10.2) mg/dL AST 26 (17-59) U/L ALT 27 (4-49) U/L Alkaline Phosphatase 55 (38-126) U/L Total Protein 6.8 (6.3-8.2) g/dL Albumin 4.3 (3.5-5.0) g/dL Current Medications Generic Name Dose Route Start Last Admin Trade Name Freq PRN Reason Stop Dose Admin Acetaminophen 650 mg 03/24/22 20:25 Acetaminophen Tab 325 Mg Tab PO Q6HR PRN Mild Pain or Fever > 100.5 Hydrocodone Bitart/Acetaminophen 1 each 03/24/22 20:25 Hydrocodone/Apap 10-325mg 1 Each Tab PO Q8H PRN SEVERE Pain Alprazolam 0.5 mg 03/24/22 17:26 Alprazolam 0.5 Mg Tab PO BID PRN Anxiety Ascorbic Acid 1,000 mg 03/25/22 09:00 Ascorbic Acid 500 Mg Tab PO DAILY [facility] Aspirin 81 mg 03/25/22 09:00 Aspirin 81 Mg PO DAILY MIROSLAVA Atorvastatin Calcium 80 mg 03/24/22 21:00 03/24/22 20:55 Atorvastatin 80 Mg Tab PO 80 mg HS [facility] Administration Calcium Carbonate/Glycine 1,000 mg 03/24/22 20:25 Calcium Carbonate 500 Mg Chewable PO Q4HR PRN Dyspepsia Heparin Sodium (Porcine) 5,000 unit 03/25/22 00:00 03/25/22 00:29 Heparin Sodium,Porcine/Pf 5,000 Unit/0.5 Ml Syringe SQ Not Given Q8HR [facility] Hydrochlorothiazide 25 mg 03/25/22 09:00 Hydrochlorothiazide 25 Mg Tab PO DAILY [facility] Ketorolac Tromethamine 15 mg 03/24/22 16:27 03/24/22 22:24 Ketorolac 15 Mg/Ml 1 Ml Vial IVP 03/27/22 16:31 15 mg Q6HR PRN Administration Moderate Pain (Scale 4 to 6) Lactulose 20 gm 03/24/22 20:25 Lactulose 20 Gm/30 Ml Cup PO DAILY PRN Constipation Lisinopril 5 mg 03/24/22 21:00 03/24/22 20:55 Lisinopril 5 Mg Tab PO 5 mg BID MIROSLAVA Administration Metoprolol Tartrate 25 mg 03/24/22 21:00 03/24/22 20:55 Metoprolol Tartrate 25 Mg Tab PO 25 mg BID MIROSLAVA Administration Morphine Sulfate 4 mg 03/24/22 16:27 03/25/22 00:19 Morphine Sulfate 4 Mg/Ml Syringe IV 4 mg Q4HR PRN Administration Severe Pain (Scale 7 to 10) Naloxone HCl 0.2 mg 03/24/22 16:27 Naloxone 0.4 Mg/Ml 1 Ml Vial IV Q2M PRN Opioid Reversal Nitroglycerin 0.4 mg 03/24/22 14:11 03/24/22 15:05 Nitroglycerin Sl Tabs 0.4 Mg Tab SUBLINGUAL 0.4 mg Q5M PRN Administration Chest Pain Ondansetron HCl 4 mg 03/24/22 20:25 Ondansetron 4 Mg/2 Ml Vial IVP Q8HR PRN Nausea And Vomiting Temazepam 15 mg 03/24/22 20:25 Temazepam 15 Mg Cap PO HS PRN Insomnia 03/24/22 13:49 03/24/22 13:49
[2022-03-25] MEDS: METOPROLOL TARTRATE 25 MG TAB PO SCH (09:53)
[2022-03-25] MEDS: lisinopriL 5 MG TAB PO SCH (09:54)
[2022-03-25 10:06] LABS: Basophils # (A) 0.05 X 10*3/uL (0.00-0.10); Basophils % (A) 0.7 %; Eosinophils % (A) 2.8 %; HCT 39.3 % (39.6-50.0); HGB 13.3 g/dL (13.0-17.0); Immature Grans, Automated 0.3 %; Lymphocytes # (A) 2.28 X 10*3/uL (0.90-5.00); Lymphocytes % (A) 32.4 %; MCH 31.5 pg (27.0-32.0); MCHC 33.8 g/dL (32.0-37.0); MCV 93.1 fL (80.0-97.0); Mean Platelet Volume 12.3 fL (9.5-12.2); Monocytes # (A) 0.71 X 10*3/uL (0.20-1.00); Monocytes % (A) 10.1 %; NRBC Per 100 WBC 0 /100 WBCS (0.0-0.0); Neutrophils # (A) 3.77 X 10*3/uL (1.80-7.70); Neutrophils % (A) 53.7 %; Platelet Count 223 X 10*3/uL (140-440); RBC 4.22 X 10*6/uL (4.40-5.60); RDW 12.3 % (11.5-14.5); WBC 7.03 X 10*3/uL (4.50-10.00)
[2022-03-25 10:21] LABS: African American GFR (CKD) 78.4 (60.0-200.0); Anion Gap 8.4 mmol/L (10.00-18.00); BUN/Creat Ratio 15.5 Ratio (12.00-20.00); Blood Urea Nitrogen 18.6 mg/dL (9.0-27.0); Calcium 9.4 mg/dL (8.7-10.3); Carbon Dioxide 28.6 mmol/L (20.0-27.5); Chol/HDL Ratio 2.91 Ratio; LDL Cholesterol,Calculated 62.3 mg/dL (0.0-131.0); Non-African American GFR(CKD) 67.7 (60.0-200.0); Potassium 4.3 mmol/L (3.5-5.5); VLDL Calculation 19.76 mg/dL (5.00-40.00)
--- NOTE | 2022-03-25 11:13 | CA ---
Transthoracic Echo Report Name: Preston Brady Age: 57 Gender: M : 1965 Exam Date: 03/25/2022 09:35 Exam Location: [place] [facility] Ht (in): 72 Wt (lb): 207 Ordering Physician: Arcelia Salter Attending/Referring Phys: [id number], Gaetano Rustic F[employer] Builder Lynn Boyd RDCS Procedure CPT: Indications: LVF Cardiac Hx: Technical Quality: Contrast 1: Total Dose (mL): Contrast 2: Total Dose (mL): MEASUREMENTS (Male / Female) Normal Values 2D ECHO LV Diastolic Diameter PLAX 5.1 cm 4.2 - 5.9 / 3.9 - 5.3 cm LV Systolic Diameter PLAX 3.8 cm IVS Diastolic Thickness 1.0 cm 0.6 - 1.0 / 0.6 - 0.9 cm LVPW Diastolic Thickness 1.1 cm 0.6 - 1.0 / 0.6 - 0.9 cm LV Relative Wall Thickness 0.4 RV Internal Dim ED PLAX 3.2 cm LA Systolic Diameter LX 4.0 cm 3.0 - 4.0 / 2.7 - 3.8 cm LA Volume 56.0 cm??? 18 - 58 / 22 - 52 cm??? M-MODE Aortic Root Diameter MM 3.0 cm LA Systolic Diameter MM 4.1 cm LA Ao Ratio MM 1.4 MV E Point Septal Separation 0.4 cm AV Cusp Separation MM 2.3 cm DOPPLER MV Area PHT 4.2 cm??? Mitral E Point Velocity 68.5 cm/s Mitral A Point Velocity 65.7 cm/s Mitral E to A Ratio 1.0 MV Deceleration Time 179.9 ms MV E' Velocity 10.4 cm/s Mitral E to MV E' Ratio 6.6 TR Peak Velocity 179.9 cm/s TR Peak Gradient 12.9 mmHg Right Ventricular Systolic Press 17.9 mmHg FINDINGS Left Ventricle Normal left ventricular size, wall thickness, systolic function with no obvious regional wall motion abnormalities. Left ventricular ejection fraction is estimated at 55%. Right Ventricle The right ventricle is normal in size and function. Right ventricular systolic pressure within normal limits. Right Atrium The right atrium is normal in size. Left Atrium The left atrium is normal in size. Mitral Valve Structurally normal mitral valve without significant stenosis or prolapse. There is mild mitral regurgitation. Aortic Valve Structurally normal aortic valve without significant sclerosis or stenosis. There is no aortic regurgitation. Tricuspid Valve Structurally normal tricuspid valve without significant stenosis. Pulmonary artery systolic pressure is normal. Pulmonic Valve Structurally normal pulmonic valve without significant stenosis. There is no pulmonic regurgitation. Pericardium Normal pericardium without effusion. Aorta Normal aortic root dimension. CONCLUSIONS Normal LV systolic function Mild mitral regurgitation Previewed by: Dr. Jensen Field MD (Electronically Signed) Final Date: 25 March 2022 11:12
[2022-03-25 11:24] VITALS: PULSE 49; TEMP 97.7
[2022-03-25] MEDS: KETOROLAC 15 MG/ML 1 ML VIAL IVP PRN (11:29)
[2022-03-25 12:06] VITALS: BP 145/85; RESP 19
--- NOTE | 2022-03-25 20:10 | P.HPIM ---
History of Present Illness H&P Date: 03/25/22 Chief Complaint: Chest pain This is a very pleasant 57-year-old patient who follows with Dr. Sunshine. Chronic stable medical conditions include hyperlipidemia, hypertension, CAD with 2 stents to RCA in 2019, osteoarthritis. Patient rather active. Accompanied by his Patient been carrying heavy boxes inside the house. After lifting some of them he went down to tow picker a heavy garbage bag of something pop on the medial aspect of the breast bone. [place] very sharp or something is stabbed him. Subsequently broke out into a set felt flushed anxious became concerned that he may be having a heart attack.: His . Came to the ER. Otherwise patient rather active. 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 Alcohol rarely. No smoking. Physical examination: VITAL SIGNS: 98.2, 68, 18, 131/75, 95% room air upon presentation GENERAL: BMI 27.3, declining but awake, comfortable. EYES: Pupils equal. Conjunctiva normal. HEENT: External appearance of nose and ears normal, oral cavity grossly normal. NECK: JVD not raised; masses not palpable. HEART: First and second heart sounds are normal; no edema. LUNGS: Respiratory rate normal; clear to auscultation. ABDOMEN: Soft, nontender, liver spleen not palpable, no masses palpable. PSYCH: Alert and oriented x3; mood and affect normal. MUSCULOSKELETAL:No Clubbing/cyanosis;muscles-grossly intact. Localized reproducible. At the left costochondral junction about the mid upper third and middle third NEUROLOGICAL: Cranial nerves grossly intact; no facial asymmetry, power and sensation grossly intact. LYMPHATICS: No lymph nodes palpable in the axilla and neck INVESTIGATIONS, reviewed in the clinical context: White count 7 hemoglobin 13.3 platelets 223 potassium 4.3 creatinine 1.2 LDL 62.3 Troponin I 3 negative EKG tracing personally reviewed by me-sinus rhythm. 66. Chest x-ray film personally reviewed by me-cardiomegaly. CT aaorta Negative for dissection Assessment and plan: -Anterior chest wall pain. Likely acute costochondritis. Given history of CAD to rule out coronary cause. Cardiology consulted. Serial enzymes negative. Stress test was ordered. -Hyperlipidemia Lipitor 80 mg -Essential hypertension Lopressor 25 mg twice a day Zestril 5 mg twice a day -Primary osteoarthritis Pain medications as needed Cardiology consulted. Stress test was ordered. Past Medical History Past Medical History: Chest Pain / Angina, Hyperlipidemia, Hypertension, Myocardial Infarction ([place]), Osteoarthritis (OA) Additional Past Medical History / Comment(s): 2 stents to RCA 02/23/19 Last Myocardial Infarction Date:: 02/23/19 History of Any Multi-Drug Resistant Organisms: None Reported Past Surgical History: Appendectomy, Heart Catheterization With Stent, Orthopedic Surgery Additional Past Surgical History / Comment(s): RIGHT SHOULDER SURGERY, LEFT KNEE ARTHROSCOPY, TUMOR ABOVE LEFT EYE (), MESENTERY? (4 YRS OLD)., WISDOM TEETH Past Anesthesia/Blood Transfusion Reactions: No Reported Reaction Past Psychological History: Anxiety, Depression Smoking Status: Former smoker Past Alcohol Use History: Rare Past Drug Use History: None Reported - Past Family History Mother Family Medical History: No Reported History Sister(s) Additional Family Medical History / Comment(s): BOWEL SURGERY - UNSURE CAUSE. Medications and Allergies Home Medications Medication Instructions Recorded Confirmed Type HYDROcodone/APAP 10-325MG [[place] 1 tab PO Q8H PRN 02/23/19 03/24/22 History 10-325] Vitamin B Complex 1 cap PO DAILY 02/23/19 03/24/22 History Aspirin 81 mg PO DAILY #30 chew 02/25/19 03/24/22 Rx Nitroglycerin Sl Tabs [Nitrostat] 0.4 mg SUBLINGUAL Q5M PRN #20 tab 02/25/19 03/24/22 Rx Atorvastatin [Lipitor] 80 mg PO HS 03/12/21 03/24/22 History Glucos Sul 2Kcl/MSM/Chond/C/Mn 1 cap PO DAILY 03/12/21 03/24/22 History [Glucosamine Chondroitin Cap] Metoprolol Tartrate [Lopressor] 25 mg PO BID 03/12/21 03/24/22 History hydroCHLOROthiazide [Hydrodiuril] 25 mg PO DAILY 03/12/21 03/24/22 History lisinopriL [Zestril] 5 mg PO BID 03/12/21 03/24/22 History ALPRAZolam [Xanax] 0.5 mg PO BID PRN 03/24/22 03/24/22 History Ascorbic Acid [Vitamin C] 1,000 mg PO DAILY 03/24/22 03/24/22 History Krill Oil 500 mg PO DAILY 03/24/22 03/24/22 History Multivit-Min/FA/Lycopen/Lutein 1 tab PO DAILY 03/24/22 03/24/22 History [Centrum Silver Men Tablet] Saw [place] 500 mg PO DAILY 03/24/22 03/24/22 History Ubidecarenone [Coenzyme Q10] 200 mg PO DAILY 03/24/22 03/24/22 History Allergies Allergy/AdvReac Type Severity Reaction Status Date / Time rosuvastatin [From Crestor] AdvReac muscle pain Verified 03/24/22 15:49 Physical Exam Vitals: Vital Signs Temp Pulse Resp BP Pulse Ox 03/25/22 09:45 98.1 F 64 16 136/69 99 03/25/22 05:00 55 L 18 120/67 97 03/25/22 04:00 59 L 16 113/65 97 03/25/22 03:00 53 L 18 121/61 98 03/25/22 02:00 78 16 122/72 98 03/25/22 01:00 52 L 117/65 98 03/25/22 00:00 48 L 18 114/62 98 03/24/22 23:00 45 L 18 111/60 95 03/24/22 22:00 48 L 18 110/60 97 03/24/22 21:00 55 L 18 155/89 98 03/24/22 19:38 55 L 18 125/75 98 03/24/22 18:00 58 L 18 127/86 97 03/24/22 17:00 56 L 18 130/74 97 03/24/22 16:45 59 L 18 131/75 95 03/24/22 15:10 75 18 144/81 95 03/24/22 14:58 70 18 151/76 98 03/24/22 14:14 66 18 172/83 98 03/24/22 12:48 98.2 F 68 18 160/75 97 Results CBC & Chem 7: 03/25/22 05:40 03/25/22 05:40 Labs: Abnormal Lab Results - Last 24 Hours (Table) 03/24/22 03/24/22 03/25/22 Range/Units 13:49 13:49 05:40 RBC 4.22 L (4.40-5.60) X 10*6/uL Hct 39.3 L (39.6-50.0) % MPV 12.3 H (9.5-12.2) fL APTT 21.6 L (22.0-30.0) sec Carbon Dioxide (20.0-27.5) mmol/L Anion Gap (10.00-18.00) mmol/L Glucose 137 H (74-99) mg/dL 03/25/22 Range/Units 05:40 RBC (4.40-5.60) X 10*6/uL Hct (39.6-50.0) % MPV (9.5-12.2) fL APTT (22.0-30.0) sec Carbon Dioxide 28.6 H (20.0-27.5) mmol/L Anion Gap 8.40 L (10.00-18.00) mmol/L Glucose (74-99) mg/dL
--- NOTE | 2022-03-25 20:13 | P.DS ---
Providers Date of admission: 03/24/22 16:27 Expected date of discharge: 03/25/22 Attending physician: Pancho Chow Consults: 03/24/22 16:27 Consult Physician Routine Consulting Provider: [facility] Consult Reason/Comments: chest pain Do you want consulting provider notified?: Yes Primary care physician: [facility] Course: Chief Complaint: Chest pain This is a very pleasant 57-year-old patient who follows with Dr. Sunshine. Chronic stable medical conditions include hyperlipidemia, hypertension, CAD with 2 stents to RCA in 2019, osteoarthritis. Patient rather active. Accompanied by his Patient been carrying heavy boxes inside the house. After lifting some of them he went down to pickle cutter a heavy garbage bag of something pop on the medial aspect of the breast bone. [place] very sharp or something is stabbed him. Subsequently broke out into a set felt flushed anxious became concerned that he may be having a heart attack.: His . Came to the ER. Otherwise patient rather active. Patient was seen by cardiogenic. [place] to be muscular skeletal. 2-D echocardiogram was unremarkable. Diagnosis acute costochondritis. Discussed with patient and . 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 No smoking. Physical examination: VITAL SIGNS: 98.2, 68, 18, 131/75, 95% room air upon presentation GENERAL: BMI 27.3, declining but awake, comfortable. EYES: Pupils equal. Conjunctiva normal. HEENT: External appearance of nose and ears normal, oral cavity grossly normal. NECK: JVD not raised; masses not palpable. HEART: First and second heart sounds are normal; no edema. LUNGS: Respiratory rate normal; clear to auscultation. ABDOMEN: Soft, nontender, liver spleen not palpable, no masses palpable. PSYCH: Alert and oriented x3; mood and affect normal. MUSCULOSKELETAL:No Clubbing/cyanosis;muscles-grossly intact. Localized reproducible. At the left costochondral junction about the mid upper third and middle third NEUROLOGICAL: Cranial nerves grossly intact; no facial asymmetry, power and sensation grossly intact. LYMPHATICS: No lymph nodes palpable in the axilla and neck INVESTIGATIONS, reviewed in the clinical context: 2-D echocardiogram: EF 55%. No wall motion abnormality. White count 7 hemoglobin 13.3 platelets 223 potassium 4.3 creatinine 1.2 LDL 62.3 Troponin I 3 negative EKG tracing personally reviewed by me-sinus rhythm. 66. Chest x-ray film personally reviewed by me-cardiomegaly. CT aaorta Negative for dissection Assessment and plan: -Anterior chest wall pain. Likely acute costochondritis. Seen by cardiology. Troponin is negative. 2-D echo unremarkable. -Hyperlipidemia Lipitor 80 mg -Essential hypertension Lopressor 25 mg twice a day Zestril 5 mg twice a day -Primary osteoarthritis Pain medications as needed Disposition: Home Plan - Discharge Summary Discharge Rx Participant: No New Discharge Prescriptions: Continue HYDROcodone/APAP 10-325MG [[place] 10-325] 1 tab PO Q8H PRN PRN Reason: Pain Vitamin B Complex 1 cap PO DAILY Aspirin 81 mg PO DAILY #30 chew Nitroglycerin Sl Tabs [Nitrostat] 0.4 mg SUBLINGUAL Q5M PRN #20 tab PRN Reason: Chest Pain Atorvastatin [Lipitor] 80 mg PO HS lisinopriL [Zestril] 5 mg PO BID ALPRAZolam [Xanax] 0.5 mg PO BID PRN PRN Reason: Anxiety Ascorbic Acid [Vitamin C] 1,000 mg PO DAILY hydroCHLOROthiazide [Hydrodiuril] 25 mg PO DAILY Metoprolol Tartrate [Lopressor] 25 mg PO BID Glucos Sul 2Kcl/MSM/Chond/C/Mn [Glucosamine Chondroitin Cap] 1 cap PO DAILY Multivit-Min/FA/Lycopen/Lutein [Centrum Silver Men Tablet] 1 tab PO DAILY No Action Krill Oil 500 mg PO DAILY Ubidecarenone [Coenzyme Q10] 200 mg PO DAILY Saw [place] 500 mg PO DAILY Discharge Medication List HYDROcodone/APAP 10-325MG [[place] 10-325] 1 tab PO Q8H PRN 02/23/19 [History] Vitamin B Complex 1 cap PO DAILY 02/23/19 [History] Aspirin 81 mg PO DAILY #30 chew 02/25/19 [Rx] Nitroglycerin Sl Tabs [Nitrostat] 0.4 mg SUBLINGUAL Q5M PRN #20 tab 02/25/19 [Rx] Atorvastatin [Lipitor] 80 mg PO HS 03/12/21 [History] Glucos Sul 2Kcl/MSM/Chond/C/Mn [Glucosamine Chondroitin Cap] 1 cap PO DAILY 03/12/21 [History] Metoprolol Tartrate [Lopressor] 25 mg PO BID 03/12/21 [History] hydroCHLOROthiazide [Hydrodiuril] 25 mg PO DAILY 03/12/21 [History] lisinopriL [Zestril] 5 mg PO BID 03/12/21 [History] ALPRAZolam [Xanax] 0.5 mg PO BID PRN 03/24/22 [History] Ascorbic Acid [Vitamin C] 1,000 mg PO DAILY 03/24/22 [History] Krill Oil 500 mg PO DAILY 03/24/22 [History] Multivit-Min/FA/Lycopen/Lutein [Centrum Silver Men Tablet] 1 tab PO DAILY 03/24/22 [History] Saw [place] 500 mg PO DAILY 03/24/22 [History] Ubidecarenone [Coenzyme Q10] 200 mg PO DAILY 03/24/22 [History] Follow up Appointment(s)/Referral(s): Singh Burgos MD [STAFF PHYSICIAN] - 04/04/22 3:15 pm (appointment with JAVIER España) Navid Sunshine DO [Primary Care Provider] - 1-2 days (no appointments available , patient placed on cancellation list. office with call you with next availble appointment. ) Discharge Disposition: HOME SELF-CARE
== END 2022-03-25 14:15 | disposition home or self-care (01) ==
LOC: EC 12:46 → 6NMEDSUR 16:27
PROVIDERS: ADMIT Hospitalist; ATTEND Hospitalist
DX: M94.0 Chondrocostal junction syndrome [Tietze] (principal); X50.0XXA Overexertion from strenuous movement or load, initial encounter; I25.10 Atherosclerotic heart disease of native coronary artery without angina pectoris; E78.5 Hyperlipidemia, unspecified; I10 Essential (primary) hypertension; F32.A Depression, unspecified; F41.9 Anxiety disorder, unspecified; M19.91 Primary osteoarthritis, unspecified site; I25.2 Old myocardial infarction; Z87.891 Personal history of nicotine dependence; Z95.5 Presence of coronary angioplasty implant and graft; Z79.899 Other long term (current) drug therapy; Z79.82 Long term (current) use of aspirin; Z82.49 Family history of ischemic heart disease and other diseases of the circulatory system
CPT/HCPCS: 96376 ×2; 96374; 96375; 99285; 36415; 93005; 93306; 80061; 80053; 80048; 83735; 84484; 85025 ×2; 85610; 85730; 71046; 71275; 74174; G0378 ×2; J2270 ×2; J1885 ×2; Q9967